=== PATIENT | male | born 1955 | race Caucasian/White ===

== ENCOUNTER → 2021-01-03 11:52 | Outpatient (CLI) | payer BC, SELFPAY ==
--- NOTE | 2021-01-03 11:54 | DI.RAD.S_ITS ---
PROCEDURE: XR CHEST 2V INDICATIONS: perez TECHNIQUE: 2 views of the chest were acquired. COMPARISON: None. FINDINGS: Surgical changes and devices: None. Lungs and pleura: Scattered subsegmental scarring and/or atelectasis. No acute consolidation. No pleural effusions or pneumothorax. Mediastinum: Mediastinal contours are normal. Heart size is normal. Bones and chest wall: No suspicious bony abnormalities. Soft tissues appear unremarkable. IMPRESSION: No acute disease. Dictated by: Sanket Briggs M.D. on 01/03/2021 at 12:13 Approved by: Sanket Briggs M.D. on 01/03/2021 at 12:14
== END ==
PROVIDERS: PCP Family Medicine; Referring Provider Family Medicine; Visit Provider Family Medicine
DX: R06.00 Dyspnea, unspecified (principal)
CPT/HCPCS: 71046

== ENCOUNTER → 2021-01-22 15:59 | Outpatient (CLI) | payer BC, SELFPAY ==
[2021-01-22 17:16] LABS: COVID19 -Nasal RAPID Negative (Negative)
== END ==
PROVIDERS: PCP Family Medicine; Referring Provider Internal Medicine; Visit Provider Internal Medicine
DX: Z20.822 Contact with and (suspected) exposure to COVID-19 (principal)
CPT/HCPCS: 87635; C9803

== ENCOUNTER → 2021-01-23 10:55 | Outpatient (CLI) | payer BC, SELFPAY ==
--- NOTE | 2021-01-31 08:37 | PM.PFT.1 ---
Pulmonary Function Test Referral & Results Date Patient Seen: 01/23/21 Requesting provider: Jacob Reyna Results: The spirometry demonstrates an FVC of 3.96 L which is 81% of predicted. The FEV1 was measured at 2.60 L which is 71% of predicted. The FEV1/FVC ratio was 66 which is 88% of predicted. Following the administration of bronchodilator there was a 34% improvement in FEF 25-75% Lung volumes show an SVC of 4.36 L which is 88% of predicted. The diffusing capacity was measured at 31.40 which is 89% of predicted. The maximum voluntary ventilation was normal Interpretation: This study demonstrates mild obstructive lung disease based on reduction FEV1 although FEV1/FVC ratio is relatively preserved there is improvement after bronchodilator as noted above especially in small airway flow and shape of flow volume loop does support the presence of obstructive lung disease There is minimal reduction in lung volumes suggesting minimal if any restrictive lung disease Diffusing capacity is probably normal
== END ==
PROVIDERS: PCP Family Medicine; Referring Provider Family Medicine; Visit Provider Family Medicine
DX: R06.00 Dyspnea, unspecified (principal); J98.8 Other specified respiratory disorders; Z86.2 Personal history of diseases of the blood and blood-forming organs and certain disorders involving the immune mechanism
CPT/HCPCS: 94060; 94726; 94729

== ENCOUNTER → 2021-02-06 09:30 | Outpatient (CLI) | payer BC, SELFPAY ==
[2021-02-06 10:23] LABS: Add Manual Diff / Slide Review NO; Basophils Absolute Auto 100 /uL (0-100); Eosinophils Absolute Auto 600 /uL (0-450); Eosinophils Percent Auto 9.8 % (2-4); Hematocrit 44.4 % (41-53); Hemoglobin 14.4 g/dL (13.5-17.5); Lymphocytes Absolute Auto 1800 /uL (1100-4500); Lymphocytes Percent Auto 29.2 % (25-40); Mean Corpuscular HGB Conc 32.4 % (30-36); Mean Corpuscular Hemoglobin 30.8 PG (26-34); Monocytes Absolute Auto 800 /uL (0-900); Monocytes Percent Auto 12.6 % (3-14); Neutrophils Absolute Auto 3000 /uL (1500-7000); Neutrophils Percent Auto 47.4 % (50-75); Platelet Count 210 X10^3/uL (150-400); Red Blood Cell Count 4.68 X10^6/uL (4.5-5.9); Red Cell Distribution Width 14.7 % (11.6-14.8); White Blood Cell Count 6.3 X10^3/uL (4.5-11.0)
[2021-02-06 11:06] LABS: Alanine Aminotransferase 29 IU/L (<50); Albumin 3.9 g/dL (3.5-5.0); Albumin Globulin Ratio 1.3 (1.0-2.8); Alkaline Phosphatase 83 U/L (38-126); Aspartate Aminotransferase 31 IU/L (17-59); BUN Creatinine Ratio 21.1 (6-22); Bilirubin Total 0.8 mg/dL (0.2-1.3); Blood Urea Nitrogen 15 mg/dL (9-20); Calcium 9.4 mg/dL (8.4-10.2); Carbon Dioxide 31 mmol/L (22-32); Chloride 103 mmol/L (98-107); Cholesterol 177 mg/dL (140-199); Estimated Glomerular Filt Rate > 60.0 mL/min (>60); Glucose 93 mg/dL (80-110); HDL Cholesterol 44 mg/dL (40-60); HEMOLYSIS < 15 (0-50); LDL Cholesterol Calculated 120 mg/dL (<100); Potassium 4.6 mmol/L (3.4-5.1); Sodium 137 mmol/L (137-145); Total Protein 6.9 g/dL (6.3-8.2); Triglycerides 65 mg/dL (35-150)
[2021-02-06 11:25] LABS: Free T3, Triiodothyronine Free 3.78 pg/mL (2.77-5.27)
[2021-02-06 11:26] LABS: Vitamin D 25 Hydroxy (D3) 40.9 ng/mL (30.0-100.0)
[2021-02-06 11:37] LABS: Prostate Specific Antigen Scrn 0.702 ng/mL (0.1-4.0)
[2021-02-06 11:39] LABS: Thyroid Stimulating Hormone 1.53 uIU/mL (0.47-4.68)
== END ==
PROVIDERS: PCP Family Medicine; Referring Provider Family Medicine; Visit Provider Family Medicine
DX: E55.9 Vitamin D deficiency, unspecified (principal); E78.2 Mixed hyperlipidemia; J45.909 Unspecified asthma, uncomplicated; R06.00 Dyspnea, unspecified; R63.5 Abnormal weight gain; Z12.5 Encounter for screening for malignant neoplasm of prostate
CPT/HCPCS: 36415; 80053; 80061; 82306; 84439; 84443; 84481; 85025; G0103

== ENCOUNTER → 2021-06-25 09:36 | Outpatient (CLI) | payer BC, OTHER, SELFPAY ==
--- NOTE | 2021-06-25 09:38 | DI.US.S_ITS ---
PROCEDURE: US EXTREMITY NONVASC LOWER LT INDICATIONS: possible smith's cyst TECHNIQUE: Real-time scanning was performed of the left popliteal fossa, with image documentation. COMPARISON: None. FINDINGS: Ultrasound examination of posterior left knee shows a complex fluid collection within left popliteal fossa measures 4.6 x 3.3 x 1.6 cm in size with low level internal echo. No internal vascularity is seen. Mild edema involving superior posterior left calf soft tissue is seen. IMPRESSION: 1. Slightly complex 4.6 x 3.3 x 1.6 cm left popliteal cyst as above. 2. Mild left calf edema. Dictated by: Javier Enrique M.D. on 06/25/2021 at 10:46 Approved by: Javier Enrique M.D. on 06/25/2021 at 10:46
== END ==
PROVIDERS: PCP Family Medicine; Referring Provider Family Medicine; Visit Provider Family Medicine
DX: M25.562 Pain in left knee (principal); M71.22 Synovial cyst of popliteal space [Baker], left knee; M25.462 Effusion, left knee; R60.0 Localized edema
CPT/HCPCS: 76882

== ENCOUNTER → 2022-10-23 10:55 | Outpatient (CLI) | payer BC, OTHER, SELFPAY ==
[2022-10-23 11:15] LABS: Add Manual Diff / Slide Review NO; Basophils Absolute Auto 0 /uL (0-100); Basophils Percent Auto 0.7 % (0-2); Eosinophils Absolute Auto 400 /uL (0-450); Eosinophils Percent Auto 6.3 % (2-4); Hematocrit 42.6 % (41-53); Hemoglobin 14.5 g/dL (13.5-17.5); Lymphocytes Absolute Auto 1600 /uL (1100-4500); Mean Corpuscular Hemoglobin 31.9 PG (26-34); Mean Corpuscular Volume 93.7 fL (80-100); Monocytes Absolute Auto 800 /uL (0-900); Monocytes Percent Auto 12.6 % (3-14); Neutrophils Absolute Auto 3200 /uL (1500-7000); Neutrophils Percent Auto 53.4 % (50-75); Platelet Count 185 X10^3/uL (150-400); Red Blood Cell Count 4.54 X10^6/uL (4.5-5.9); Red Cell Distribution Width 14.8 % (11.6-14.8)
[2022-10-23 11:33] LABS: Alanine Aminotransferase 28 IU/L (<50); Albumin Globulin Ratio 1.3 (1.0-2.8); Alkaline Phosphatase 83 U/L (38-126); Aspartate Aminotransferase 32 IU/L (17-59); BUN Creatinine Ratio 21.9 (6-22); Bilirubin Total 0.9 mg/dL (0.2-1.3); Blood Urea Nitrogen 16 mg/dL (9-20); Calcium 8.9 mg/dL (8.4-10.2); Carbon Dioxide 30 mmol/L (22-32); Chloride 102 mmol/L (98-107); Cholesterol 179 mg/dL (140-199); Estimated Glomerular Filt Rate > 60 mL/min (>60); Globulin 3.1 g/dL (1.7-4.1); Glucose 99 mg/dL (80-110); HDL Cholesterol 40 mg/dL (40-60); HEMOLYSIS < 15 (0-50); LDL Cholesterol Calculated 123 mg/dL (<100); Potassium 4.2 mmol/L (3.4-5.1); Sodium 137 mmol/L (137-145); Total Protein 7.1 g/dL (6.3-8.2); Triglycerides 82 mg/dL (35-150)
[2022-10-23 12:00] LABS: Prostate Specific Antigen 0.817 ng/mL (0.10-4.00)
== END ==
PROVIDERS: PCP Family Medicine; Referring Provider Family Medicine; Visit Provider Family Medicine
DX: Z00.00 Encounter for general adult medical examination without abnormal findings (principal); D72.10 Eosinophilia, unspecified; E78.2 Mixed hyperlipidemia; Z12.5 Encounter for screening for malignant neoplasm of prostate
CPT/HCPCS: 36415; 80053; 80061; 82306; 84153; 85025

== ENCOUNTER → 2023-01-14 15:48 | Outpatient (CLI) | payer BC, OTHER, SELFPAY ==
[2023-01-14 23:36] LABS: Free T4, Direct Thyroxine 1.21 ng/dL (0.78-2.19)
[2023-01-14 23:50] LABS: Thyroid Stimulating Hormone 1.97 uIU/mL (0.47-4.68)
== END ==
PROVIDERS: PCP Family Medicine; Referring Provider Dermatology; Visit Provider Dermatology
DX: L92.0 Granuloma annulare (principal)
CPT/HCPCS: 36415; 84439; 84443

== ENCOUNTER → 2023-03-26 15:26 | Outpatient (CLI) | payer BC, OTHER, SELFPAY ==
--- NOTE | 2023-03-26 15:29 | DI.RAD.S_ITS ---
PROCEDURE: XR LUMBAR SPINE 2-3V INDICATIONS: lower back/hip pain TECHNIQUE: 3 views of the lumbar spine were acquired. COMPARISON: None. FINDINGS: Bones: 5 [id number] vertebrae are present. Levo scoliotic curvature of the lumbar spine. Straightening of normal lumbar lordosis. Diffusely decreased osseous mineralization. Multilevel degenerative changes with disc height loss, degenerative endplate changes and marginal spurring. Facet arthropathy worse in the lower lumbar spine. No vertebral body compression fractures. No suspicious bony lesions. Soft tissues: Overlying bowel gas pattern is normal. No suspicious soft tissue calcifications. IMPRESSION: Multilevel degenerative changes of the lumbar spine. Dictated by: Fernandez Solorzano M.D. on 03/26/2023 at 16:45 Approved by: Fernandez Solorzano M.D. on 03/26/2023 at 16:46
--- NOTE | 2023-03-26 15:29 | DI.RAD.S_ITS ---
PROCEDURE: XR HIP W PEL IF DONE RT 2V INDICATIONS: lower back/hip pain TECHNIQUE: AP pelvis with lateral view(s) of the right hip(s). COMPARISON: None. FINDINGS: Bones: No fractures or dislocations. Status post right hip arthroplasty. The hardware appears intact without surrounding fracture or lucency. Degenerative changes of the visualized lower lumbar spine and pubic symphysis. Pelvic ring appears intact. No suspicious bony lesions. Soft tissues: The visualized bowel gas pattern is normal. No suspicious soft tissue calcifications. IMPRESSION: Right hip arthroplasty without evidence of interval complication. Dictated by: Fernandez Solorzano M.D. on 03/26/2023 at 16:46 Approved by: Fernandez Solorzano M.D. on 03/26/2023 at 16:47
== END ==
PROVIDERS: PCP Family Medicine; Referring Provider Family Medicine; Visit Provider Family Medicine
DX: M54.42 Lumbago with sciatica, left side (principal); M54.41 Lumbago with sciatica, right side; M47.816 Spondylosis without myelopathy or radiculopathy, lumbar region; M25.551 Pain in right hip; G89.29 Other chronic pain; Z96.641 Presence of right artificial hip joint; Z87.81 Personal history of (healed) traumatic fracture
CPT/HCPCS: 72100; 73502

== ENCOUNTER → 2023-03-28 10:52 | Outpatient (CLI) | payer BC, OTHER, SELFPAY ==
--- NOTE | 2023-03-28 10:53 | DI.MRI.S_ITS ---
PROCEDURE: MR LUMBAR SPINE WO CON INDICATIONS: Low back pain sciatica TECHNIQUE: Noncontrast sagittal T1 spin echo and T2 fast echo, sagittal STIR, and T2 fast spin echo through the lumbar spine. In cases with scoliosis, additional coronal T2 fast spin echo may be performed. COMPARISON: None. FINDINGS: Image quality: Excellent. Alignment and Curvature: There is normal bony alignment. Bone Marrow: Marrow is of normal overall signal. Schmorl's nodes of the thoracolumbar spine. No acute vertebral body compression fractures. Spinal Cord: Conus medullaris terminates at the L1 level. Visualized cord demonstrates normal signal and size. Paraspinous Soft Tissues: No paravertebral masses. T12-L1: No significant disc bulge. The foramina and central canal are patent. L1-L2: The disc is desiccated with a diffuse disc bulge and disc osteophytes. A right paracentral protrusion causes narrowing of the right lateral recess and exiting nerve root. Severe right and moderate left foraminal stenosis. The central canal has moderate stenosis. L2-L3: The disc is desiccated with a diffuse disc bulge and disc osteophytes. Facet hypertrophy on the right. Moderate right and mild left foraminal stenosis. The central canal has mild stenosis. L3-L4: Mild diffuse disc bulge. No foraminal or central canal stenosis. L4-L5: Disc space narrowing with a diffuse disc bulge and disc osteophytes. Modic type 1 endplate changes. Facet hypertrophy on the right. Mild bilateral foraminal stenosis. The central canal is patent. L5-S1: Disc space narrowing with a diffuse disc bulge and disc osteophytes. Facet hypertrophy bilaterally. Mild bilateral foraminal stenosis. The central canal is patent. IMPRESSION: 1. Multilevel lumbar spondylosis causing foraminal and central canal stenosis as detailed above. 2. The visualized spinal cord has a normal appearance. Dictated by: Matty Reynolds M.D. on 03/29/2023 at 14:10 Approved by: Matty Reynolds M.D. on 03/29/2023 at 14:20
--- NOTE | 2023-03-28 10:53 | DI.MRI.S_ITS ---
PROCEDURE: MR HIP RT WO CON INDICATIONS: Hip pain TECHNIQUE: Noncontrast coronal T1 spin echo and STIR through the bony pelvis. Coronal and axial T2 fast spin echo with fat saturation, sagittal T1 spin echo, and oblique axial T2 fast spin echo with fat saturation through the hip. COMPARISON: [facility], CR, XR HIP W PEL IF DONE RT 2V, 03/26/2023, 15:37. FINDINGS: Image quality: Degraded by metallic artifact. Bones and joints: There is a suboptimally visualized well-circumscribed high T2 intensity focus within the proximal right femur at the posterior aspect of the femoral shaft measuring 15 mm, containing small low T2 intensity foci, suggestive of an enchondroma versus low-grade chondrosarcoma. Right hip arthroplasty is present with adjacent metallic artifact. Mild periarticular osteophyte formation at the left hip joint. Moderate reactive signal within the endplates adjacent to the L5-S1 intervertebral disc. Bone marrow of the pelvic ring and proximal femurs show normal signal throughout. No intraosseous lesions or fractures. No avascular necrosis of the femoral heads. The visualized lower lumbar spine appears normally aligned. Tendons and ligaments: There is moderate grade tearing of the gluteus medius and minimus tendons at the femoral insertion sites. The nearby proximal iliotibial band also appears intact. The iliopsoas tendon appears intact, without adjacent bursal fluid collections or evidence for impingement syndrome. The origin of the hamstring tendon is intact at the ischial tuberosity, as well as the associated sacrotuberous ligament. Mild T2 signal elevation adjacent to the ischial origin of the right hamstring tendon. The straight and reflected heads of the rectus femoris muscle origin appear intact, as well as the conjoint tendon. The ligamentum teres appears intact where visualized. Labrum and cartilage: The acetabular labrum appears intact in the absence of intra-articular contrast. Cartilage surface of the femoral head appears of normal thickness. The alpha angle of the femur is within normal limits at less than 55 degrees. Soft tissues: There is a small amount of ill-defined fluid at the posterior aspect of the right proximal femur. Visualized muscles demonstrate normal bulk and internal signal. Quadratus femoris muscle demonstrates no internal edema to suggest ischiofemoral impingement. The proximal sciatic neurovascular bundle appears normal adjacent to the hamstring tendons. No free pelvic fluid. Bladder wall thickness is normal. Genitourinary structures and bowel loops appear normal where visualized. IMPRESSION: 1. Limited examination secondary to hip arthroplasty artifact. 2. Small amount of fluid posterior to the proximal femur. 3. Partial-thickness tearing of the right gluteus medius and minimus tendons. 4. Low-grade cartilaginous lesion within the proximal right femur. 4. Right hamstring tendinopathy. Dictated by: Marcelino Menendez M.D. on 03/29/2023 at 13:44 Approved by: Marcelino Menendez M.D. on 03/29/2023 at 13:51
== END ==
PROVIDERS: PCP Family Medicine; Referring Provider Family Medicine; Visit Provider Family Medicine
DX: M54.41 Lumbago with sciatica, right side (principal); M47.816 Spondylosis without myelopathy or radiculopathy, lumbar region; M47.817 Spondylosis without myelopathy or radiculopathy, lumbosacral region; M48.061 Spinal stenosis, lumbar region without neurogenic claudication; M48.07 Spinal stenosis, lumbosacral region; M54.42 Lumbago with sciatica, left side; S76.011A Strain of muscle, fascia and tendon of right hip, initial encounter; M25.551 Pain in right hip; M89.9 Disorder of bone, unspecified; G57.12 Meralgia paresthetica, left lower limb; G89.29 Other chronic pain; Z87.81 Personal history of (healed) traumatic fracture
CPT/HCPCS: 72148; 73721

== ENCOUNTER 2023-06-02 09:25 | Day surgery (SDC) | payer BC, OTHER, SELFPAY ==
[2023-05-26 14:53] VITALS: BMI 31.6
[2023-06-02] VITALS (7 sets, daily range): BP systolic 86–117; BP diastolic 57–78; PULSE 75–80; RESP 9–14; TEMP 36.2–36.9; O2SAT 93–98; BMI 31.7
[2023-06-02] MEDS: LACTATED RINGERS 1,000 ML 21 ML IV (10:05)
--- NOTE | 2023-06-02 10:13 | P.HP_ITS ---
History of Present Illness History of Present Illness Date Patient Seen: 06/02/23 Time Patient Seen: 10:13 [place] [facility] [place]: 67-year-old man here for a elective open left inguinal hernia repair. Please refer to the H and P from April 2023 for further detail. No interval change in health. [facility] Medical History Sarcoidosis Chronic bilateral low back pain with bilateral sciatica Chronic right hip pain History of fracture of right hip Chronic left-sided low back pain without sciatica Meralgia paresthetica, left lower limb Tinea corporis Trigger finger of right hand Upper extremity somatic dysfunction Degenerative arthritis of knee, bilateral Synovial cyst of popliteal space [De Paz], left knee Swelling of left knee joint Somatic dysfunction of lower extremity Pelvic somatic dysfunction Sacral region somatic dysfunction Segmental and somatic dysfunction of abdomen and other regions Lumbar region somatic dysfunction Left knee pain Low back pain Bilateral hand pain Eosinophilia, unspecified Segmental and somatic dysfunction of rib cage Rib pain on left side Unexplained weight gain Hyperlipidemia, mixed Vitamin D deficiency Allergies Abnormal chest xray (~1978) Gout (~1988) Mumps Herpes (~1977) Hepatitis C Retinal detachment (~2004) Hearing loss (~2009) Cataracts, bilateral Personal history of sarcoidosis (~1978) RINCON (dyspnea on exertion) Surgical History Anesthesia History of surgery History of hip replacement Family History Father History of heart disease Hyperlipidemia Hypertension Mother Cancer Diabetes mellitus Brother Diabetes mellitus History of heart disease Sister Stroke Atrial fibrillation Grandfather Cancer Grandmother History of heart disease Grandmother No problems noted. Social History marital status: household members: spouse lives independently: Yes occupational status: employed Smoking Status: Never smoker alcohol intake: current substance use type: does not use Meds Home Medications and Allergies Home Medications Medication Instructions Recorded Confirmed Type allopurinol 300 mg tablet 300 mg PO DAILY #90 tabs 12/29/22 06/02/23 Rx Allergies Allergy/AdvReac Type Severity Reaction Status Date / Time penicillin G Allergy Severe Hives Verified 04/30/23 09:10 Sulfa (Sulfonamide Allergy Severe Hives Verified 04/30/23 09:10 Antibiotics) Exam Narrative Exam Narrative: General adult man alert oriented no acute distress Chest nonlabored respiration Abdomen soft nontender nondistended. Left inguinal hernia marked with my initials. Assessment & Plan Assessment and plan (1) Left inguinal hernia: Status: Acute Assessment & Plan narrative: 67-year-old man here for a elective open left inguinal hernia repair. We reviewed the risks benefits and alternatives to surgery once again. He provides his written and verbal consent to proceed.
[2023-06-02] MEDS: CLINDAMYCIN 900 MG/50 ML PIGGYBACK 50 MG IV (10:37)
--- NOTE | 2023-06-02 10:55 | SUR.OPER ---
Supine on padded OR bed, head on pillow, arms secured on padded arm boards at <90 degrees abduction, legs uncrossed, safety belt at thigh, tape over blanket over lower legs. Pillow under knees.
[2023-06-02] MEDS: BUPIVACAINE 0.25% (PF) VIAL 30 ML INJ (10:59)
--- NOTE | 2023-06-02 11:51 | PM.OP.1 ---
Operative Date/Time/Diagnoses Date of procedure: 06/02/23 Time of procedure: 11:52 Pre-op diagnosis: Left inguinal hernia Post-op diagnosis: same Procedure & Clinicians Procedure: Open left inguinal hernia repair with mesh Same procedure as scheduled: Yes Indications: Symptomatic reducible left inguinal hernia Surgeon: Wei Calhoun Yes if Unassisted: Yes Anesthesia Type: General Operative Notes Findings: Large bowel containing Estimated Blood Loss (mL): 10 Procedure in detail: The patient was placed supine on the table and bilateral lower extremity compression devices were applied. Anesthesia was induced they were intubated with an LMA and received Ancef. A time-out was performed. They were prepped and draped in sterile fashion. The left external inguinal ring and the anterior superior iliac crest were identified and marked. 1 finger breath above the inguinal ligament the skin was infiltrated with 0.25% bupivacaine. The skin incision was made, the subcutaneous tissues were divided with electrocautery exposing the external oblique aponeurosis which was then opened along the direction of its fibers. Using blunt dissection the internal oblique aporneurosis was from the external oblique upper leaflet. The cord was carefully dissected away from the inguinal canal adjacent to the pubic tubercle. The cord including the vas deferens, testicular bloody supply, ilioguinal and genital nerve were encircled with a [place] drain. No direct floor defect was observed. The cremasteric fibers surrounding the cord were divided adjacent to the internal ring. The vas deferens and the testicular vessels were preserved and protected. The cord contents were carefully explored. There was a large, bowel containing indirect hernia on the anterior medial aspect of the cord which was skeletonized away from the vas deferens and testicular blood supply. The indirect hernia was skeletonized back to the internal ring and reduced spontaneously into the abdomen. A 7x 15 cm lightweight Bard Pro Loop hernia mesh was anchored to the insertion of the rectus muscle at the pubic tubercle such that there was approximately 2 cm of tubercle overlap with Ethibond. The inferior edge of the mesh was secured to the shelving edge of the inguinal ligament using Ethibond. Interrupted 3 0 Vicryl suture was used to anchor the superior aspect of the mesh to the conjoined tendon in several places. The tails were then reapproximated loosely around the spermatic cord. A plug of mesh was placed into the internal ring and secured to the adjacent fascia given fascial defect. The tails of the mesh were then tucked under the external oblique aponeurosis. The repair was checked for hemostasis. The wound was irrigated with sterile saline. The external oblique aponeurosis was reapproximated in a running fashion using 3 0 Vicryl. The subcutaneous tissues were reapproximated with 3 0 Vicryl skin closed with 4 0 Monocryl followed by the application of Dermabond. At the end of the operation I ensured that both testicles were within the scrotum. The sponge instrument count at the end operation was correct. The patient emerged from anesthesia was extubated and transferred to the postoperative care unit in stable condition. A total of 30 ml of of 0.25% bupivicaine was used to infiltrate the skin. Complications: none Post-operative Condition: stable Disposition: same day surgery
[2023-06-02] MEDS: ACETAMINOPHEN 325 MG TABLET 650 MG PO (12:12)
== END 2023-06-02 12:40 | disposition home or self-care (01) ==
PROVIDERS: PCP Family Medicine; Referring Provider Surgery; Visit Provider Surgery
PROC: (CPT 49505; principal; 2023-06-02 10:45)
DX: K40.90 Unilateral inguinal hernia, without obstruction or gangrene, not specified as recurrent (principal)
CPT/HCPCS: 49505; J1100; J1885; J2405; J2704; J3010

== ENCOUNTER 2023-06-07 12:29 | Emergency (ER) | payer BC, OTHER, SELFPAY ==
[2023-06-07] VITALS (18 sets, daily range): BP systolic 114–157; BP diastolic 64–110; PULSE 64–152; RESP 13–30; TEMP 37.1; O2SAT 93–97; BMI 32.1
--- NOTE | 2023-06-07 12:49 | DI.RAD.S_ITS ---
PROCEDURE: XR CHEST 1V INDICATIONS: A FIB WITH RVR TECHNIQUE: One view of the chest was acquired. COMPARISON: [facility], CR, XR CHEST 2V, 01/03/2021, 11:50. FINDINGS: Surgical changes and devices: None. Lungs and pleura: Lungs are clear. No pleural effusions or pneumothorax. Mediastinum: Mediastinal contours appear normal. Heart size is normal. Bones and chest wall: No suspicious bony lesions. Overlying soft tissues appear unremarkable. IMPRESSION: No acute cardiopulmonary abnormality is seen. Dictated by: Marcelino Menendez M.D. on 06/07/2023 at 13:56 Approved by: Marcelino Menendez M.D. on 06/07/2023 at 13:57
--- NOTE | 2023-06-07 12:50 | ED.ARRPALP ---
HPI - Arrhythmia/Palpitations General Chief Complaint: Arrhythmia/Palpitations Stated Complaint: IRREGULAR HEART RATE Time Seen by Provider: 06/07/23 12:34 History of Present Illness HPI narrative: 67-year-old male with history of gout, hernia surgery 06/02/23 presents by private vehicle from home for elevated heart rate. Patient states that last night he was sitting in his chair when he felt his heart began to flutter. He checked his pulse and it was 150 beats per minute, but it eventually went away. This morning his heart rate increased again and he went to the walk-in clinic, who referred him to the emergency department. Patient denies history of heart problems. He denies chest pain, shortness of breath, leg swelling, other complaints. Related Data Previous Rx's Medication Instructions Recorded allopurinol 300 mg tablet 300 mg PO DAILY #90 tabs 12/29/22 acetaminophen 325 mg capsule 650 mg (2 x 325 mg) PO QID PRN 06/02/23 (Tylenol) pain #60 caps docusate sodium 100 mg capsule 100 mg PO BID #30 caps 06/02/23 (Colace) ibuprofen 200 mg tablet 400 mg (2 x 200 mg) PO Q6H #60 tabs 06/02/23 tramadol 50 mg tablet 50 mg PO Q6H PRN pain #15 tabs 06/02/23 apixaban 5 mg tablet (Eliquis) 5 mg PO BID #30 tabs 06/07/23 diltiazem HCl 180 mg 180 mg PO QAM #30 caps 06/07/23 capsule,extended release 24 hr spironolactone 25 mg tablet 25 mg PO DAILY #30 tabs 06/07/23 cyclobenzaprine 10 mg tablet 10 mg PO TID PRN muscle spasm 3 06/09/23 days #10 tabs Allergies Allergy/AdvReac Type Severity Reaction Status Date / Time penicillin G Allergy Severe Hives Verified 06/07/23 12:53 Sulfa (Sulfonamide Allergy Severe Hives Verified 06/07/23 12:53 Antibiotics) Review of Systems Review of Systems Narrative: Negative except as noted above Patient History Medical History Sarcoidosis Chronic bilateral low back pain with bilateral sciatica Chronic right hip pain History of fracture of right hip Chronic left-sided low back pain without sciatica Meralgia paresthetica, left lower limb Tinea corporis Trigger finger of right hand Upper extremity somatic dysfunction Degenerative arthritis of knee, bilateral Synovial cyst of popliteal space [Ed Paz], left knee Swelling of left knee joint Somatic dysfunction of lower extremity Pelvic somatic dysfunction Sacral region somatic dysfunction Segmental and somatic dysfunction of abdomen and other regions Lumbar region somatic dysfunction Left knee pain Low back pain Bilateral hand pain Eosinophilia, unspecified Segmental and somatic dysfunction of rib cage Rib pain on left side Unexplained weight gain Hyperlipidemia, mixed Vitamin D deficiency Allergies Abnormal chest xray (~1978) Gout (~1988) Mumps Herpes (~1977) Hepatitis C Retinal detachment (~2004) Hearing loss (~2009) Cataracts, bilateral Personal history of sarcoidosis (~1978) RINCON (dyspnea on exertion) Surgical History Anesthesia History of surgery History of hip replacement Family History Father History of heart disease Hyperlipidemia Hypertension Mother Cancer Diabetes mellitus Brother Diabetes mellitus History of heart disease Sister Stroke Atrial fibrillation Grandfather Cancer Grandmother History of heart disease Grandmother No problems noted. Social History marital status: household members: spouse lives independently: Yes occupational status: employed Smoking Status: Never smoker alcohol intake: current substance use type: does not use Smoking Status: Never smoker alcohol intake frequency: 0-2 drinks per day Substance Use Type: does not use Exam Initial Vital Signs Initial Vital Signs: Vital Signs Temperature 98.7 F 06/07/23 12:46 Pulse Rate 152 H 06/07/23 12:46 Respiratory Rate 18 06/07/23 12:46 Blood Pressure 150/110 H 06/07/23 12:46 Pulse Oximetry 97 06/07/23 12:46 Oxygen Delivery Method Room Air 06/07/23 12:46 Const: Awake, alert, no acute distress, nontoxic appearing Cardiac: Irregularly irregular, tachycardia RESP: unlabored, clear bilaterally, no wheezing GI: Atraumatic, soft, nontender, nondistended, no rebound, no guarding MSK: Atraumatic, full range of motion, pulses equal Skin: Warm, Dry, intact, no rashes Neuro: AO x3, CN II-XII grossly intact, moves all extremities Psych: affect normal, mood normal, not suicidal, not homicidal Course Orders Ordered: Discontinued Medications Diltiazem HCl (Diltiazem 5 Mg/Ml Sdv) 20 mg IV NOW ONE Stop: 06/07/23 13:24 Last Admin: 06/07/23 13:28 Dose: 20 mg Documented By: EDI Diltiazem HCl (Diltiazem Cd 180 Mg Cap) 180 mg PO NOW ONE Stop: 06/07/23 14:01 Last Admin: 06/07/23 14:23 Dose: 180 mg Documented By: EDI Sodium Chloride (Normal Saline 0.9%) 1,000 mls @ 1,000 mls/hr IV BOLUS ONE Stop: 06/07/23 13:47 Last Infusion: 06/07/23 13:42 Dose: Infused Documented By: Admin: 06/07/23 12:56 Dose: 1,000 mls/hr Documented By: EDI Metoprolol Tartrate (Metoprolol Tartrate 5 Mg/5 Ml Inj) 5 mg IV Q5M ONEL Stop: 06/07/23 13:11 Last Admin: 06/07/23 13:13 Dose: 5 mg Documented By: Admin: 06/07/23 13:06 Dose: 5 mg Documented By: Admin: 06/07/23 12:56 Dose: 5 mg Documented By: EDI Vital Signs Vital signs: Vital Signs - 8 hr 06/07/23 12:46 06/07/23 13:12 06/07/23 13:26 Temperature 98.7 F Pulse Rate 152 H 133 H 142 H Respiratory Rate 18 13 Blood Pressure 150/110 H Pulse Oximetry 97 96 Oxygen Delivery Method Room Air 06/07/23 13:28 06/07/23 13:30 06/07/23 13:30 Temperature Pulse Rate 146 H 146 H Respiratory Rate 13 Blood Pressure 156/100 H 157/92 H Pulse Oximetry 97 Oxygen Delivery Method 06/07/23 13:40 06/07/23 14:00 06/07/23 14:00 Temperature Pulse Rate 76 75 Respiratory Rate 18 Blood Pressure 120/82 Pulse Oximetry 95 Oxygen Delivery Method 06/07/23 14:30 06/07/23 14:30 06/07/23 14:51 Temperature Pulse Rate 64 Respiratory Rate 14 Blood Pressure 117/68 124/65 Pulse Oximetry 93 Oxygen Delivery Method 06/07/23 14:51 06/07/23 15:00 06/07/23 15:00 Temperature Pulse Rate 71 78 Respiratory Rate 28 H 17 Blood Pressure 120/72 Pulse Oximetry 97 95 Oxygen Delivery Method 06/07/23 15:30 06/07/23 15:30 06/07/23 16:00 Temperature Pulse Rate 77 Respiratory Rate 13 Blood Pressure 114/64 118/67 Pulse Oximetry 96 Oxygen Delivery Method 06/07/23 16:00 06/07/23 16:30 06/07/23 16:30 Temperature Pulse Rate 83 79 Respiratory Rate 16 16 Blood Pressure 123/76 Pulse Oximetry 94 95 Oxygen Delivery Method 06/07/23 17:19 06/07/23 17:20 06/07/23 17:20 Temperature Pulse Rate 76 79 Respiratory Rate 13 13 Blood Pressure 124/82 Pulse Oximetry 95 96 Oxygen Delivery Method 06/07/23 17:30 06/07/23 18:00 06/07/23 18:48 Temperature Pulse Rate 78 77 82 Respiratory Rate 23 30 H 18 Blood Pressure 129/89 Pulse Oximetry 95 94 96 Oxygen Delivery Method Room Air MDM - Arrhythmia/Palpitations Differential Diagnosis Differential diagnosis: Likely palpitations, anxiety, artial fibrillation and artial flutter Lab Data 06/07/23 13:20 06/07/23 13:20 Labs: Lab Results 06/07/23 06/07/23 Range/Units 13:20 14:00 WBC 8.3 (4.5-11.0) X10^3/uL RBC 4.39 L (4.5-5.9) X10^6/uL Hgb 13.7 (13.5-17.5) g/dL Hct 41.1 (41-53) % MCV 93.6 (80-100) fL MCH 31.2 (26-34) PG MCHC 33.4 (30-36) % RDW 15.2 H (11.6-14.8) % Plt Count 234 (150-400) X10^3/uL Neut % (Auto) 65.9 (50-75) % Lymph % (Auto) 19.9 L (25-40) % [place] % (Auto) 9.5 (3-14) % Eos % (Auto) 4.2 H (2-4) % Baso % (Auto) 0.5 (0-2) % Neut # (Auto) 5500 (9511-1319) /uL Lymph # (Auto) 1700 (0604-5765) /uL [place] # (Auto) 800 (0-900) /uL Eos # (Auto) 400 (0-450) /uL Baso # (Auto) 0 (0-100) /uL PT 13.8 H (9.4-12.5) SECONDS INR 1.2 (0.9-1.3) Sodium 137 (137-145) mmol/L Potassium 4.4 (3.4-5.1) mmol/L Chloride 102 (98-107) mmol/L Carbon Dioxide 28 (22-32) mmol/L BUN 16 (9-20) mg/dL Creatinine 0.77 (0.66-1.25) mg/dL Estimated GFR > 60 (>60) mL/min BUN/Creatinine Ratio 20.8 (6-22) Glucose 94 (80-110) mg/dL Calcium 8.8 (8.4-10.2) mg/dL Total Bilirubin 0.7 (0.2-1.3) mg/dL AST 32 (17-59) IU/L ALT 30 (<50) IU/L Alkaline Phosphatase 85 (38-126) U/L Total Creatine Kinase 46 L (55-170) U/L Troponin I 0.041 H (0.01-0.034) ng/mL NT-Pro-B Natriuret Pep 4060 H (<125) pg/mL Total Protein 6.8 (6.3-8.2) g/dL Albumin 3.7 (3.5-5.0) g/dL Globulin 3.1 (1.7-4.1) g/dL Albumin/Globulin Ratio 1.2 (1.0-2.8) TSH 1.40 (0.47-4.68) uIU/mL Urine Color Yellow Urine Appearance Clear Urine pH 7.0 (4.5-8.0) Ur Specific [place] 1.015 (1.000-1.035) Urine Protein Negative (Negative) Urine Glucose (UA) Negative (Negative) g/dL Urine Ketones Trace H (NEGATIVE) Urine Occult Blood Negative (Negative) Urine Nitrate Negative (Negative) Urine Bilirubin Negative (NEGATIVE) Urine Urobilinogen 0.2 (0.2) E.U./dL Ur Leukocyte Esterase Negative (NEGATIVE) Urine RBC None seen (0-5/HPF) Urine WBC None seen (0-5/HPF) Ur Squamous Epith Cells None seen (0-5/HPF) Urine Bacteria None seen (None) Ur Culture Indicated? Cult not indicated Vol Urine Centrifuged 10ml (spun) ECG Data Interpretation: Tachycardia the patient thinks began yesterday, however he isn't quite sure if he has ever had abnormal heart rhythm in the past. He states he has not measured his vitals at home. Patient found to be in atrial fibrillation with RVR on arrival. Initially attempted to cardiovert with 5 mg IV metoprolol x3, however this did not successfully cardiovert him. Patient converted to atrial fibrillation at 60-70 beats per minute with single dose of IV Cardizem. P.o. long-acting Cardizem ordered and provided to the patient. Chads 2 Vasc score 1. Laboratory work is significant for borderline troponin, slightly elevated BNP. EKG is atrial fibrillation without concerning ischemic findings, patient adamantly denies chest pain. Echocardiogram shows dilated right ventricle and slightly increased atrial pressures. CT angiography did not show any pulmonary embolism despite recent hernia repair surgery, some findings of volume overload are seen in the lower lung cuadra, however patient is saturating 97-98% on room air and has no shortness of breath and does not appear to be clinically volume overloaded. Patient has remained rate controlled while in the emergency department after receiving Cardizem. I discussed all findings with Dr. Holloway of Cardiology, who recommended continuing diltiazem, starting low-dose spironolactone, and even though the patient's CHADS2 Vasc score is 1 he would recommend that the patient be empirically anticoagulated with Eliquis. All of these medications were sent to the patient's pharmacy of choice. Discharge Plan Departure Patient Disposition: Home Clinical Impression: Atrial fibrillation with RVR Instructions: DI for Atrial Fibrillation Activity Restrictions/Additional Instructions: If your heart rate elevates over 120 beats per minute I recommend taking 1 single extra dose of your diltiazem. If after approximately 1 hour it does not control her heart rate please return to the emergency department for further evaluation and treatment. Prescriptions: New diltiazem HCl 180 mg capsule,extended release 24hr 180 mg PO QAM Qty: 30 0RF spironolactone 25 mg tablet 25 mg PO DAILY Qty: 30 0RF Eliquis 5 mg tablet 5 mg PO BID Qty: 30 0RF No Action allopurinol 300 mg tablet 300 mg PO DAILY Qty: 90 3RF cyclobenzaprine 10 mg tablet 10 mg PO TID PRN (Reason: muscle spasm) 3 Days Qty: 10 0RF tramadol 50 mg tablet 50 mg PO Q6H PRN (Reason: pain) Qty: 15 0RF ibuprofen 200 mg tablet 400 mg PO Q6H Qty: 60 0RF docusate sodium [Colace] 100 mg capsule 100 mg PO BID Qty: 30 0RF acetaminophen [Tylenol] 325 mg capsule 650 mg PO QID PRN (Reason: pain) Qty: 60 0RF Referrals: Reji Holloway MD [Physician] - Dong Reyna DO [Primary Care Provider] - Stand Alone Forms: Patient Portal/API
[2023-06-07] MEDS: SODIUM CHLORIDE 0.9% 1,000 ML 1000 ML IV (12:56)
[2023-06-07] MEDS: METOPROLOL TARTRATE 5 MG/5 ML INJ IV ×3 (12:56→13:13)
[2023-06-07] MEDS: dilTIAZem 5 MG/ML SDV 20 MG IV (13:28)
[2023-06-07 13:31] LABS: Add Manual Diff / Slide Review NO; Basophils Absolute Auto 0 /uL (0-100); Basophils Percent Auto 0.5 % (0-2); Eosinophils Absolute Auto 400 /uL (0-450); Eosinophils Percent Auto 4.2 % (2-4); Hematocrit 41.1 % (41-53); Hemoglobin 13.7 g/dL (13.5-17.5); Lymphocytes Absolute Auto 1700 /uL (1100-4500); Lymphocytes Percent Auto 19.9 % (25-40); Mean Corpuscular HGB Conc 33.4 % (30-36); Mean Corpuscular Hemoglobin 31.2 PG (26-34); Mean Corpuscular Volume 93.6 fL (80-100); Monocytes Absolute Auto 800 /uL (0-900); Monocytes Percent Auto 9.5 % (3-14); Neutrophils Absolute Auto 5500 /uL (1500-7000); Neutrophils Percent Auto 65.9 % (50-75); Platelet Count 234 X10^3/uL (150-400); Red Blood Cell Count 4.39 X10^6/uL (4.5-5.9); Red Cell Distribution Width 15.2 % (11.6-14.8); White Blood Cell Count 8.3 X10^3/uL (4.5-11.0)
[2023-06-07 13:47] LABS: INR 1.2 (0.9-1.3); Prothrombin Time 13.8 SECONDS (9.4-12.5)
[2023-06-07 13:55] LABS: Alanine Aminotransferase 30 IU/L (<50); Albumin 3.7 g/dL (3.5-5.0); Albumin Globulin Ratio 1.2 (1.0-2.8); Alkaline Phosphatase 85 U/L (38-126); Aspartate Aminotransferase 32 IU/L (17-59); BUN Creatinine Ratio 20.8 (6-22); Bilirubin Total 0.7 mg/dL (0.2-1.3); Blood Urea Nitrogen 16 mg/dL (9-20); Calcium 8.8 mg/dL (8.4-10.2); Carbon Dioxide 28 mmol/L (22-32); Chloride 102 mmol/L (98-107); Creatine Kinase 46 U/L (55-170); Estimated Glomerular Filt Rate > 60 mL/min (>60); Globulin 3.1 g/dL (1.7-4.1); Glucose 94 mg/dL (80-110); HEMOLYSIS < 15 (0-50); Potassium 4.4 mmol/L (3.4-5.1); Sodium 137 mmol/L (137-145); Total Protein 6.8 g/dL (6.3-8.2)
[2023-06-07 14:08] LABS: NT-proBNP (BNP-Adult 18+) 4060 pg/mL (<125); Troponin I 0.041 ng/mL (0.01-0.034)
[2023-06-07 14:08] LABS: Urine Volume 10mL (spun)
[2023-06-07 14:14] LABS: Appearance Urine UA CLEAR; Bilirubin Urine UA NEGATIVE (NEGATIVE); Color Urine UA YELLOW; Glucose Urine UA NEGATIVE (Negative); Ketones Urine UA TRACE (NEGATIVE); Leukocyte Esterase Urine UA NEGATIVE (NEGATIVE); Nitrite Urine UA NEGATIVE (Negative); Occult Blood Urine UA NEGATIVE (Negative); Protein Urine UA NEGATIVE (Negative); Specific Gravity Urine UA 1.015 (1.000-1.035); Urobilinogen Urine UA 0.2 E.U./dL (0.2)
--- NOTE | 2023-06-07 14:15 | DI.ECHO.S_ITS ---
[facility]---------+ [facility] +---------+ : : [address] : : : : [id number] : : : : Phone: [phone]+ Echocardiogram Report + + :Name: KISHAN LUNDY Study Date: 06/07/2023 Height: 72 in : :[facility] ReadingLocation: Weight: 237 lb : : Gender: Male BSA: 2.3 m2 : :: 1955 Age: 67 yrs BP: 120/72 mmHg: :Reason For Study: NEW ATRIAL FIBRILLATION, ELEVATED TROPONIN, : :ELEVATED BNP : :Ordering Physician: KRIS, : :REINA Performed By: Lesly Cooley : :Referring: REINA PONCE : + + Interpretation Summary 1) Normal left ventricular thickness and size with low normal systolic function (EF 50-55%). 2) Mildly enlarged right ventricle with low normal function. 3) There is mild mitral regurgitation. 4) No prior Echo available for comparison. Procedure: A two-dimensional transthoracic echocardiogram with color flow and Doppler was performed. The study quality was technically adequate. There is no prior echocardiogram noted for this patient. The patient was in atrial fibrillation with heart rates between 76-82 bpm during the exam. Left Ventricle: The left ventricle is normal in size and wall thickness. The ejection fraction is estimated to be 50-55%. There are no focal wall motion abnormalities. Diastolic function could not be accurately assessed due to atrial fibrillation. Right Ventricle: The right ventricle is mildly dilated. Right ventricular systolic function is at the lower limits of normal. Atria: The left atrial size is normal. Right atrial size is normal. There is no Doppler evidence for an interatrial shunt. Mitral Valve: The mitral valve is normal in structure and function. There is mild mitral regurgitation. Aortic Valve: The aortic valve is trileaflet. The aortic valve opens well. There is no aortic valve stenosis. No aortic regurgitation is present. Tricuspid Valve: The tricuspid valve is normal in structure and function. Pulmonary artery pressures cannot be estimated because of the lack of a measurable TR jet velocity. Pulmonary artery pressures cannot be estimated because of the lack of a measurable TR jet velocity but the IVC suggests a CVP of around 8 mmHg. Pulmonic Valve: The pulmonic valve leaflets are thin and pliable; valve motion is normal. There is mild pulmonic regurgitation. Great Vessels: The aortic root is normal size. The dimensions of the ascending aorta are normal. The IVC is dilated (diameter is greater than 2.1 cm) yet it collapses greater than 50% with a sniff. This suggests a right atrial pressure of 8 mm Hg. Pericardium/ Pleura There is no pericardial effusion. There is no pleural effusion. MMode/2D Measurements & Calculations LVIDd: 4.9 cm LVOT diam: 2.2 cm LVIDs: 3.5 cm Ao root diam: 3.7 cm FS: 27.8 % asc Aorta Diam: 3.3 cm IVSd: 0.92 cm Ao Arch Diam (Prox Trans): 3.1 cm LVPWd: 0.71 cm LV weathers. diameter/BSA (cm/m^2): 2.1 LV sys. diameter/BSA (cm/m^2): 1.5 LA A2 area: 21.8 cm2 RA long axis: 6.3 cm LA A4 area: 23.7 cm2 RA area: 20.9 cm2 LA length (vol): 6.7 cm RA vol: 59.3 ml LA vol: 65.5 ml RA : 25.9 ml/m2 LA vol index: 28.6 ml/m2 IVC diam: 2.2 cm RVD1 (basal): 4.8 cm RVD2 (mid): 3.7 cm TAPSE: 1.9 cm Doppler Measurements & Calculations Ao V2 max: 129.2 cm/sec LVOT Max [place]: 137.5 cm/sec Ao V2 mean: 97.9 cm/sec LV V1 max P.6 mmHg Ao max P.7 mmHg LV V1 VTI: 26.6 cm Ao mean P.2 mmHg SONAM(I,D): 3.8 cm2 Ao V2 VTI: 25.3 cm SONAM(V,D): 3.9 cm2 sev ratio: 1.0 SONAM indexed to BSA (cm^2/m^2): 1.7 MV E max [place]: 108.5 cm/sec PA V2 max: 71.8 cm/sec MV A max [place]: 1.1 cm/sec PA V2 mean: 52.5 cm/sec MV E/A: 99.9 PA mean P.2 mmHg Med Peak E' [place]: 7.9 cm/sec PA pr(Accel): 27.6 mmHg E/E' med: 13.7 Lat Peak E' [place]: 12.1 cm/sec E/E' lat: 9.0 E/e' average: 11.3 MV dec time: 0.16 sec SV(LVOT): 97.5 ml Reading Physician:04:34 PM
[2023-06-07] MEDS: dilTIAZem CD 180 MG CAP PO (14:23)
[2023-06-07 14:24] LABS: Bacteria Urine None Seen; Culture Indicated Urine Cult Not Indicated; RBC Urine None Seen (0-5/HPF); Squamous Epithelial Cell Urine None Seen (0-5/HPF); WBC Urine None Seen (0-5/HPF)
--- NOTE | 2023-06-07 16:45 | DI.CT.S_ITS ---
PROCEDURE: CT ANGIO CHEST PE PROTOCOL INDICATIONS: NEW A FIB/DILATED R VENTRICLE TECHNIQUE: After the administration of intravenous contrast, 2 mm thick sections acquired from the pulmonary apices to the posterior costophrenic angles. 3-dimensional maximum intensity projection (MIP) coronal and sagittal reformats were then acquired through the thorax. For radiation dose reduction, the following was used: automated exposure control, adjustment of mA and/or kV according to patient size. COMPARISON: None. FINDINGS: Image quality: Diagnostic. Pulmonary arteries: Pulmonary arteries are normal in size, and demonstrate no intraluminal filling defects to suggest central pulmonary embolism. Lower Neck: No enlarged lymph nodes. Thyroid: Normal CT appearance. Axillae: No enlarged lymph nodes. Chest Wall: Unremarkable. Bones: There are severe degenerative disc and endplate changes in the visible lower cervical spine. No suspicious bone lesions. Lungs and Pleura: Mild bibasilar reticulation and slight ground-glass opacity. Mild gravitational changes along the fissures and posterior pleural surfaces. No dense consolidations or pleural effusions. No suspicious nodules or masses. Bilateral perihilar bronchial wall thickening. No bronchiectasis. Heart: The heart is mildly enlarged. No pericardial effusion. Thoracic Vessels: No aortic aneurysm. Mediastinum and [place]: Mild confluent bilateral hilar adenopathy. No bulky mediastinal lymph nodes. Esophagus: No wall thickening. No hiatal hernia. Upper Abdomen: Visualized upper abdomen solid organs and bowel loops appear normal. IMPRESSION: No pulmonary embolus. Reticulation and scattered ground-glass opacities suggesting interstitial and early pulmonary edema. This may be due to cardiogenic edema or increased fluid status. Mild bilateral hilar adenopathy can be seen in the setting of CHF. This is otherwise nonspecific. Dictated by: Bridget Abarca M.D. on 06/07/2023 at 17:21 Approved by: Bridget Abarca M.D. on 06/07/2023 at 17:27
== END 2023-06-07 18:50 | disposition home or self-care (01) ==
PROVIDERS: Emergency Provider Emergency Medicine; PCP Family Medicine
DX: I48.91 Unspecified atrial fibrillation (principal); Z79.01 Long term (current) use of anticoagulants
CPT/HCPCS: 36415; 51798; 71045; 71275; 80053; 81001; 82550; 83880; 84443; 84484; 85025; 85610; 93005; 93306; 96361; 96374; 96375; 99284; Q9967

== ENCOUNTER 2023-06-09 12:15 | Emergency (ER) | payer BC, OTHER, SELFPAY ==
[2023-06-09 12:30] VITALS: BP 144/75; PULSE 69; RESP 18; TEMP 36.7; O2SAT 98; BMI 31.4
[2023-06-09 12:40] VITALS: BP 134/73; PULSE 67; RESP 18; O2SAT 95
--- NOTE | 2023-06-09 12:52 | ED_ITS ---
HPI - General Adult <Yaneth Wilson PA-C - Last Filed: 06/09/23 15:48> General Chief complaint: Hypertension Stated complaint: high BP 191/?, 240/117, 121/105@11:21,172/88@11:41 Time Seen by Provider: 06/09/23 12:30 Source: patient Mode of arrival: Ambulatory History of Present Illness HPI narrative: 67-year-old male with past medical history asthma, sciatica, arthritis, hyperlipidemia presents to the ED due to elevated blood pressure readings at home. Patient also complains of a right-sided neck pain which radiates up to the right temporal. Patient was diagnosed 2 days ago with AFib with RVR and started on diltiazem, spironolactone, Eliquis. Patient is about to start his Eliquis today, however has been taking the diltiazem and spironolactone. Patient has a home blood pressure cuff which goes on the wrist, has seen very elevated readings this morning as high as 240/117. Given the neck and headache and the elevated blood pressure readings, patient presents to the ED for further evaluation. Patient denies fever, chills, chest pain, shortness of breath, nausea, vomiting, vision changes, dysuria, lightheadedness, dizziness, syncope. Related Data Previous Rx's Medication Instructions Recorded allopurinol 300 mg tablet 300 mg PO DAILY #90 tabs 12/29/22 acetaminophen 325 mg capsule 650 mg (2 x 325 mg) PO QID PRN 06/02/23 (Tylenol) pain #60 caps docusate sodium 100 mg capsule 100 mg PO BID #30 caps 06/02/23 (Colace) ibuprofen 200 mg tablet 400 mg (2 x 200 mg) PO Q6H #60 tabs 06/02/23 tramadol 50 mg tablet 50 mg PO Q6H PRN pain #15 tabs 06/02/23 apixaban 5 mg tablet (Eliquis) 5 mg PO BID #30 tabs 06/07/23 diltiazem HCl 180 mg 180 mg PO QAM #30 caps 06/07/23 capsule,extended release 24 hr spironolactone 25 mg tablet 25 mg PO DAILY #30 tabs 06/07/23 cyclobenzaprine 10 mg tablet 10 mg PO TID PRN muscle spasm 3 01/24/24 days #10 tabs Allergies Allergy/AdvReac Type Severity Reaction Status Date / Time penicillin G Allergy Severe Hives Verified 06/07/23 12:53 Sulfa (Sulfonamide Allergy Severe Hives Verified 06/07/23 12:53 Antibiotics) Review of Systems <Yaneth Wilson PA-C - Last Filed: 06/09/23 15:48> Review of Systems Narrative: High blood pressure readings at home Constitutional Constitutional: Denies chills, Denies fatigue, Denies fever(s), Denies frequent falls, Denies lethargy and Denies weakness Eyes Eyes: Denies change in vision, Denies eye discharge, Denies irritation and Denies loss of vision ENT Ears, Nose, Mouth, and Throat: Denies change in voice, Denies dizziness, Denies neck pain, Denies sore throat and Denies throat swelling Cardiovascular Cardiovascular: Denies chest pain, Denies irregular heart rhythm, Denies lightheadedness, Denies palpitations, Denies dyspnea, Denies dyspnea on exertion and Denies orthopnea Respiratory Respiratory: Denies cough, Denies dyspnea, Denies dyspnea on exertion and Denies wheezing Gastrointestinal Gastrointestinal: Denies abdominal pain, Denies change in bowel habits, Denies diarrhea, Denies nausea and Denies vomiting Musculoskeletal Musculoskeletal: Denies neck pain and Denies numbness Comments: Right-sided neck pain, headache Integumentary/Breasts Skin/Breast: Denies pruritus, Denies erythema, Denies rash and Denies wounds Neurologic Neurologic: Denies behavioral changes, Denies confusion, Denies dizziness, Denies frequent falls, Denies loss of vision, Denies numbness and Denies weakness Psychiatric Psychiatric: Denies anxiety, Denies behavioral changes, Denies confusion, Denies depression, Denies homicidal ideation and Denies suicidal ideation Endocrine Endocrine: Denies fatigue, Denies flushing and Denies palpitations Hematologic/Lymphatic Hematologic/Lymphatic: Denies easy bruising Allergic/Immunologic Allergic/Immunologic: Denies urticaria, Denies throat swelling and Denies wheezing Patient History <Yaneth Wilson PA-C - Last Filed: 06/09/23 15:48> Medical History Sarcoidosis Chronic bilateral low back pain with bilateral sciatica Chronic right hip pain History of fracture of right hip Chronic left-sided low back pain without sciatica Meralgia paresthetica, left lower limb Tinea corporis Trigger finger of right hand Upper extremity somatic dysfunction Degenerative arthritis of knee, bilateral Synovial cyst of popliteal space [De Paz], left knee Swelling of left knee joint Somatic dysfunction of lower extremity Pelvic somatic dysfunction Sacral region somatic dysfunction Segmental and somatic dysfunction of abdomen and other regions Lumbar region somatic dysfunction Left knee pain Low back pain Bilateral hand pain Eosinophilia, unspecified Segmental and somatic dysfunction of rib cage Rib pain on left side Unexplained weight gain Hyperlipidemia, mixed Vitamin D deficiency Allergies Abnormal chest xray (~1978) Gout (~1988) Mumps Herpes (~1977) Hepatitis C Retinal detachment (~2004) Hearing loss (~2009) Cataracts, bilateral Personal history of sarcoidosis (~1978) RINCON (dyspnea on exertion) Surgical History Anesthesia History of surgery History of hip replacement Family History Father History of heart disease Hyperlipidemia Hypertension Mother Cancer Diabetes mellitus Brother Diabetes mellitus History of heart disease Sister Stroke Atrial fibrillation Grandfather Cancer Grandmother History of heart disease Grandmother No problems noted. Social History marital status: household members: spouse lives independently: Yes occupational status: employed Smoking Status: Never smoker alcohol intake: current substance use type: does not use Smoking Status: Never smoker alcohol intake frequency: 0-2 drinks per day Substance Use Type: does not use Exam <Yaneth Wilson PA-C - Last Filed: 06/09/23 15:48> Narrative Exam Narrative: Const General:?cooperative, healthy appearing and comfortable [facility] Head:?normal to inspection Ears:?hearing grossly normal bilaterally Nose:?external nose normal Face and sinus:?normal facial exam and sinuses nontender Mouth:?oral mucosae normal Throat:?posterior oropharynx normal Eyes General:?appearance normal, both eyes and all related structures Neck Neck:?normal visual inspection and no lymphadenopathy noted Resp Effort & Inspection:?normal respiratory effort Auscultation:?clear to auscultation bilaterally Cardio Rate:?regular rate Rhythm:?regular rhythm Musculoskeletal No midline tenderness to palpation. There is some tenderness to palpation of neck muscles. There is full range of motion of the neck. Strength and s ensation is intact. Neuro General:?patient alert, patient awake and patient oriented x3 Initial Vital Signs Initial Vital Signs: Vital Signs Temperature 98.1 F 06/09/23 12:30 Pulse Rate 69 06/09/23 12:30 Respiratory Rate 18 06/09/23 12:30 Blood Pressure 144/75 H 06/09/23 12:30 Pulse Oximetry 98 06/09/23 12:30 Oxygen Delivery Method Room Air 06/09/23 12:30 <Ninfa Perez MD - Last Filed: 06/10/23 19:24> Initial Vital Signs Initial Vital Signs: Vital Signs Temperature 98.1 F 06/09/23 12:30 Pulse Rate 69 06/09/23 12:30 Respiratory Rate 18 06/09/23 12:30 Blood Pressure 144/75 H 06/09/23 12:30 Pulse Oximetry 98 06/09/23 12:30 Oxygen Delivery Method Room Air 06/09/23 12:30 Course <Yaneth Wilson PA-C - Last Filed: 06/09/23 15:48> Vital Signs Vital signs: Vital Signs - 8 hr 06/09/23 12:30 06/09/23 12:40 Temperature 98.1 F Pulse Rate 69 67 Respiratory Rate 18 18 Blood Pressure 144/75 H 134/73 Pulse Oximetry 98 95 Oxygen Delivery Method Room Air Room Air <Ninfa Perez MD - Last Filed: 06/10/23 19:24> Vital Signs Vital signs: Vital Signs - 8 hr 06/09/23 12:30 06/09/23 12:40 Temperature 98.1 F Pulse Rate 69 67 Respiratory Rate 18 18 Blood Pressure 144/75 H 134/73 Pulse Oximetry 98 95 Oxygen Delivery Method Room Air Room Air Medical Decision Making <Yaneth Wilson PA-C - Last Filed: 06/09/23 15:48> MDM Narrative Medical decision making narrative: 67-year-old male with past medical history asthma, sciatica, arthritis, hyperlipidemia presents to the ED due to elevated blood pressure readings at home. Blood pressure readings in the ED today were 144/75, followed by 134/73. Patient's neck pain most consistent with a musculoskeletal etiology. Counseled patient and advised that he get a different blood pressure cuff. Counseled patient on the musculoskeletal neck pain. Prescribed muscle relaxants. Recommend taking Tylenol if the neck pain persists. Recommend continuing diltiazem, spironolactone, Eliquis as prescribed. Recommend follow-up with PCP and Cardiology. ED return precautions discussed with patient. Patient verbalized understanding. Medical records reviewed: Yes Discharge Plan Departure Patient Disposition: Home Clinical Impression: Neck pain, Elevated blood pressure reading Instructions: DI for Neck Pain Activity Restrictions/Additional Instructions: You were evaluated in the ED today for right-sided neck pain, headache and some elevated home blood pressure readings. Your blood pressure was normal in the ED and measured at 134/73. Your home blood pressure cuff is likely giving you some incorrect readings and we recommend that you obtain a different cough, preferably the appropriate size and 1 that goes on the arm versus the wrist. Your neck pain and headache is due to a musculoskeletal strain for which you are being prescribed a muscle relaxant. Please follow-up with your PCP. Return to the ED if you have worsening symptoms, chest pain, shortness of breath. Prescriptions: New cyclobenzaprine 10 mg tablet 10 mg PO TID PRN (Reason: muscle spasm) 3 Days Qty: 10 0RF No Action allopurinol 300 mg tablet 300 mg PO DAILY Qty: 90 3RF tramadol 50 mg tablet 50 mg PO Q6H PRN (Reason: pain) Qty: 15 0RF ibuprofen 200 mg tablet 400 mg PO Q6H Qty: 60 0RF docusate sodium [Colace] 100 mg capsule 100 mg PO BID Qty: 30 0RF acetaminophen [Tylenol] 325 mg capsule 650 mg PO QID PRN (Reason: pain) Qty: 60 0RF diltiazem HCl 180 mg capsule,extended release 24hr 180 mg PO QAM Qty: 30 0RF spironolactone 25 mg tablet 25 mg PO DAILY Qty: 30 0RF Eliquis 5 mg tablet 5 mg PO BID Qty: 30 0RF Referrals: Dong Reyna DO [Primary Care Provider] - Stand Alone Forms: Patient Portal/API ED Sign-out <Ninfa Perez MD - Last Filed: 06/10/23 19:24> Cosign ED Attending Everardoature Attestation: I did not see this patient. I was available all times for consultation.
== END 2023-06-09 13:25 | disposition home or self-care (01) ==
PROVIDERS: Emergency Provider Student in an Organized Health Care Education/Training Program; PCP Family Medicine
DX: M54.2 Cervicalgia (principal); R03.0 Elevated blood-pressure reading, without diagnosis of hypertension
CPT/HCPCS: 99281

== ENCOUNTER 2023-06-13 12:38 | Observation (INO) | payer BC, OTHER, MEDICARE, SELFPAY ==
[2023-06-13] VITALS (46 sets, daily range): BP systolic 104–137; BP diastolic 62–84; PULSE 58–160; RESP 9–99; TEMP 36.7–36.9; O2SAT 92–97; BMI 31.4
--- NOTE | 2023-06-13 13:02 | DI.RAD.S_ITS ---
PROCEDURE: XR CHEST 1V INDICATIONS: chest pain TECHNIQUE: One view of the chest was acquired. COMPARISON: [facility], CR, XR CHEST 1V, 06/07/2023, 13:05. [facility], CT, CT ANGIO CHEST PE PROTOCOL, 06/07/2023, 16:52. FINDINGS: Surgical changes and devices: None. Lungs and pleura: Lungs are clear. No pleural effusions or pneumothorax. Mediastinum: Mediastinal contours appear normal. Heart size is normal. Bones and chest wall: No suspicious bony lesions. Age-appropriate bony degenerative changes are seen. Overlying soft tissues appear unremarkable. IMPRESSION: Portable chest within normal limits for age. Dictated by: Jabier Calderon M.D. on 06/13/2023 at 13:12 Approved by: Jabier Calderon M.D. on 06/13/2023 at 13:12
[2023-06-13 13:25] LABS: Add Manual Diff / Slide Review NO; Basophils Absolute Auto 100 /uL (0-100); Basophils Percent Auto 0.7 % (0-2); Eosinophils Absolute Auto 600 /uL (0-450); Eosinophils Percent Auto 5.7 % (2-4); Hematocrit 45.6 % (41-53); Hemoglobin 15.5 g/dL (13.5-17.5); Lymphocytes Absolute Auto 2000 /uL (1100-4500); Lymphocytes Percent Auto 19.5 % (25-40); Mean Corpuscular HGB Conc 33.9 % (30-36); Mean Corpuscular Hemoglobin 31.7 PG (26-34); Mean Corpuscular Volume 93.5 fL (80-100); Monocytes Absolute Auto 1200 /uL (0-900); Monocytes Percent Auto 11.4 % (3-14); Neutrophils Absolute Auto 6400 /uL (1500-7000); Neutrophils Percent Auto 62.7 % (50-75); Platelet Count 259 X10^3/uL (150-400); Red Blood Cell Count 4.88 X10^6/uL (4.5-5.9); Red Cell Distribution Width 14.9 % (11.6-14.8); White Blood Cell Count 10.1 X10^3/uL (4.5-11.0)
--- NOTE | 2023-06-13 13:32 | ED_ITS ---
HPI - Arrhythmia/Palpitations General Chief Complaint: Arrhythmia/Palpitations Stated Complaint: afib heart rate 159/53 pills not working Time Seen by Provider: 06/13/23 13:11 Source: patient and family Mode of arrival: Ambulatory History of Present Illness HPI narrative: 67-year-old male. Had an initial episode of atrial fibrillation approximately 1 week ago. Was seen here in the emergency department. Was given metoprolol which did not change his tachycardia. Received a bolus of Cardizem. Per the note this improved his heart rate but was still in AFib. Was discharged home on oral Cardizem and anticoagulation. He states that he has been taking all of his medications as directed. Earlier today he noticed that his heart rate was elevated. No chest pain. No shortness of breath. He took a dose of Cardizem. It improved his heart rate for approximately 1 hour and then the tachycardia returned. He took another dose of the Cardizem however he has been persistently tachycardic in the 150 since then. He has taken his Eliquis as directed. He has a follow-up with Cardiology in approximately 1 week. Related Data Home Medications Medication Instructions Recorded Confirmed tramadol 50 mg tablet 50 mg PO Q6H PRN pain 06/13/23 06/13/23 Previous Rx's Medication Instructions Recorded allopurinol 300 mg tablet 300 mg PO DAILY #90 tabs 12/29/22 acetaminophen 325 mg capsule 650 mg (2 x 325 mg) PO QID PRN 06/02/23 (Tylenol) pain #60 caps diltiazem HCl 180 mg 180 mg PO QAM #30 caps 06/07/23 capsule,extended release 24 hr spironolactone 25 mg tablet 25 mg PO DAILY #30 tabs 06/07/23 apixaban 5 mg tablet (Eliquis) 5 mg PO BID #3 tabs 06/12/23 Allergies Allergy/AdvReac Type Severity Reaction Status Date / Time penicillin G Allergy Severe Hives Verified 06/13/23 13:02 Sulfa (Sulfonamide Allergy Severe Hives Verified 06/13/23 13:02 Antibiotics) Review of Systems Review of Systems ROS Unobtainable: All systems reviewed & are unremarkable except as noted in HPI and below Patient History Medical History Sarcoidosis Chronic bilateral low back pain with bilateral sciatica Chronic right hip pain History of fracture of right hip Chronic left-sided low back pain without sciatica Meralgia paresthetica, left lower limb Tinea corporis Trigger finger of right hand Upper extremity somatic dysfunction Degenerative arthritis of knee, bilateral Synovial cyst of popliteal space [De Paz], left knee Swelling of left knee joint Somatic dysfunction of lower extremity Pelvic somatic dysfunction Sacral region somatic dysfunction Segmental and somatic dysfunction of abdomen and other regions Lumbar region somatic dysfunction Left knee pain Low back pain Bilateral hand pain Eosinophilia, unspecified Segmental and somatic dysfunction of rib cage Rib pain on left side Unexplained weight gain Hyperlipidemia, mixed Vitamin D deficiency Allergies Abnormal chest xray (~1978) Gout (~1988) Mumps Herpes (~1977) Hepatitis C Retinal detachment (~2004) Hearing loss (~2009) Cataracts, bilateral Personal history of sarcoidosis (~1978) RINCON (dyspnea on exertion) Surgical History Anesthesia History of surgery History of hip replacement Family History Father History of heart disease Hyperlipidemia Hypertension Mother Cancer Diabetes mellitus Brother Diabetes mellitus History of heart disease Sister Stroke Atrial fibrillation Grandfather Cancer Grandmother History of heart disease Grandmother No problems noted. Social History marital status: household members: spouse lives independently: Yes occupational status: employed Smoking Status: Never smoker alcohol intake: current substance use type: does not use Smoking Status: Never smoker alcohol intake frequency: a few times a week Substance Use Type: does not use Exam Initial Vital Signs Initial Vital Signs: Vital Signs Temperature 98.5 F 06/13/23 12:55 Pulse Rate 160 H 06/13/23 12:55 Respiratory Rate 16 06/13/23 12:55 Blood Pressure 112/70 06/13/23 12:55 Pulse Oximetry 97 06/13/23 12:55 Oxygen Delivery Method Room Air 06/13/23 12:55 Const General: cooperative HENMT Head: normal to inspection and normocephalic Resp Effort & Inspection: normal respiratory effort Auscultation: clear to auscultation bilaterally Cardio Rate: tachycardic Rhythm: regular rhythm GI Inspection: normal to inspection Skin General: no rashes or lesions noted Neuro General: patient alert, patient awake and moves all extremities Extrem General: normal to inspection and capillary refill normal Course Orders Ordered: ED Orders 06/13/23 13:02 XR chest 1V Stat EKG-12 Lead Stat 06/13/23 13:12 Comprehensive Metabolic Panel Stat Lipase Stat Magnesium Stat PTT Partial Thromboplastin Yoel Stat Prothrombin Time INR Stat Troponin & CK Cardiac Panel Stat 06/13/23 13:19 Complete Blood Count AUTO DIFF Stat 06/13/23 15:23 EKG-12 Lead Stat Acetaminophen (Acetaminophen 325 Mg Tablet) 650 mg PO Q6H PRN PRN Reason: Fever/Mild Pain (1-3) Amiodarone HCl/Dextrose (Nexterone) 360 mg in 200 mls @ 33.333 mls/hr IV NOW ONE; Protocol Stop: 06/13/23 21:34 Last Titration: 06/13/23 16:45 Dose: 33.33 mls/hr, 33.33 mls/hr Documented By: Admin: 06/13/23 15:45 Dose: 33.33 mls/hr, 33.33 mls/hr Documented By: RODRIGO Influenza Virus Vaccine (Influenza Hd Vaccine 0.7 Ml Syringe) 0.7 ml IM .ONCE ONE Stop: 06/15/23 17:03 Metoprolol Tartrate (Metoprolol Ir 25 Mg Tablet) 25 mg PO BID ONEL Naloxone HCl (Naloxone 0.4 Mg/Ml Vial) 0.2 mg IV Q2MIN PRN PRN Reason: Opiate Reversal Discontinued Medications Amiodarone HCl (Amiodarone 150 Mg/3 Ml Vial) 150 mg IV NOW ONE Stop: 06/13/23 14:23 Last Admin: 06/13/23 14:32 Dose: 150 mg Documented By: ANTONETTE Aspirin (Aspirin 81 Mg Chew Tab) 324 mg PO NOW ONE Stop: 06/13/23 13:03 Last Admin: 06/13/23 14:14 Dose: Not Given Documented By: ANTONETTE Diltiazem HCl (Diltiazem 5 Mg/Ml Sdv) 20 mg IV NOW ONE Stop: 06/13/23 13:35 Last Admin: 06/13/23 13:47 Dose: 20 mg Documented By: RODRIGO Metoprolol Tartrate (Metoprolol Tartrate 5 Mg/5 Ml Inj) 5 mg IV NOW ONE Stop: 06/13/23 15:41 Last Admin: 01/28/24 15:45 Dose: 5 mg Documented By: CTS Vital Signs Vital signs: Vital Signs - 8 hr 06/13/23 12:55 06/13/23 13:08 06/13/23 13:12 Temperature 98.5 F Pulse Rate 160 H 152 H 153 H Respiratory Rate 16 15 19 Blood Pressure 112/70 Pulse Oximetry 97 92 96 Oxygen Delivery Method Room Air 06/13/23 13:12 06/13/23 13:15 06/13/23 13:30 Temperature Pulse Rate 153 H 155 H Respiratory Rate 15 19 Blood Pressure 128/84 Pulse Oximetry 97 93 Oxygen Delivery Method 06/13/23 13:30 06/13/23 13:45 06/13/23 13:47 Temperature Pulse Rate 155 H 155 H Respiratory Rate 12 Blood Pressure 121/78 Pulse Oximetry 93 Oxygen Delivery Method 06/13/23 13:49 06/13/23 13:49 06/13/23 13:52 Temperature Pulse Rate 155 H Respiratory Rate 13 Blood Pressure 113/68 104/68 Pulse Oximetry 93 Oxygen Delivery Method 06/13/23 13:52 06/13/23 14:00 06/13/23 14:01 Temperature Pulse Rate 155 H 154 H 151 H Respiratory Rate 15 19 9 L Blood Pressure Pulse Oximetry 92 95 95 Oxygen Delivery Method 06/13/23 14:01 06/13/23 14:15 06/13/23 14:30 Temperature Pulse Rate 152 H 91 H Respiratory Rate 11 L 10 L Blood Pressure 114/74 Pulse Oximetry 96 97 Oxygen Delivery Method Room Air 06/13/23 14:30 06/13/23 14:45 06/13/23 15:00 Temperature Pulse Rate 134 H Respiratory Rate 19 Blood Pressure 121/72 137/64 Pulse Oximetry 96 Oxygen Delivery Method 06/13/23 15:00 06/13/23 15:20 06/13/23 15:30 Temperature Pulse Rate 97 H 130 H 151 H Respiratory Rate 23 47 H 23 Blood Pressure Pulse Oximetry 93 96 97 Oxygen Delivery Method 06/13/23 15:45 06/13/23 16:00 Temperature Pulse Rate 151 H 83 Respiratory Rate 19 41 H Blood Pressure Pulse Oximetry 95 96 Oxygen Delivery Method MDM - Arrhythmia/Palpitations Lab Data Attestation: I reviewed the patient's lab results. 06/13/23 13:19 06/13/23 13:12 Labs: Lab Results 06/13/23 06/13/23 Range/Units 13:12 13:19 WBC 10.1 (4.5-11.0) X10^3/uL RBC 4.88 (4.5-5.9) X10^6/uL Hgb 15.5 (13.5-17.5) g/dL Hct 45.6 (41-53) % MCV 93.5 (80-100) fL MCH 31.7 (26-34) PG MCHC 33.9 (30-36) % RDW 14.9 H (11.6-14.8) % Plt Count 259 (150-400) X10^3/uL Neut % (Auto) 62.7 (50-75) % Lymph % (Auto) 19.5 L (25-40) % Morgan % (Auto) 11.4 (3-14) % Eos % (Auto) 5.7 H (2-4) % Baso % (Auto) 0.7 (0-2) % Neut # (Auto) 6400 (3538-5952) /uL Lymph # (Auto) 2000 (9503-1925) /uL Morgan # (Auto) 1200 H (0-900) /uL Eos # (Auto) 600 H (0-450) /uL Baso # (Auto) 100 (0-100) /uL PT 14.6 H (9.4-12.5) SECONDS INR 1.3 (0.9-1.3) APTT 35 (25.1-36.5) SECONDS Sodium 137 (137-145) mmol/L Potassium 4.5 (3.4-5.1) mmol/L Chloride 99 (98-107) mmol/L Carbon Dioxide 26 (22-32) mmol/L BUN 19 (9-20) mg/dL Creatinine 0.93 (0.66-1.25) mg/dL Estimated GFR > 60 (>60) mL/min BUN/Creatinine Ratio 20.4 (6-22) Glucose 95 (80-110) mg/dL Calcium 9.7 (8.4-10.2) mg/dL Magnesium 2.0 (1.6-2.3) mg/dL Total Bilirubin 0.8 (0.2-1.3) mg/dL AST 33 (17-59) IU/L ALT 32 (<50) IU/L Alkaline Phosphatase 84 (38-126) U/L Total Creatine Kinase 51 L (55-170) U/L Troponin I 0.026 (0.01-0.034) ng/mL Total Protein 7.8 (6.3-8.2) g/dL Albumin 4.3 (3.5-5.0) g/dL Globulin 3.5 (1.7-4.1) g/dL Albumin/Globulin Ratio 1.2 (1.0-2.8) Lipase 72 (23-300) U/L Imaging Data Chest x-ray: Radiologist's Impresson: PROCEDURE: XR CHEST 1V INDICATIONS: chest pain TECHNIQUE: One view of the chest was acquired. COMPARISON: [facility], CR, XR CHEST 1V, 06/07/2023, 13:05. [facility], CT, CT ANGIO CHEST PE PROTOCOL, 06/07/2023, 16:52. FINDINGS: Surgical changes and devices: None. Lungs and pleura: Lungs are clear. No pleural effusions or pneumothorax. Mediastinum: Mediastinal contours appear normal. Heart size is normal. Bones and chest wall: No suspicious bony lesions. Age-appropriate bony degenerative changes are seen. Overlying soft tissues appear unremarkable. IMPRESSION: Portable chest within normal limits for age. ECG Data Attestation: I personally reviewed and interpreted this ECG as follows: Interpretation: Atrial flutter Ventricular rate of 154 Left axis deviation QRS [address] T wave changes MDM Narrative Medical decision making narrative: Patient was tachycardic however his heart rate was consistently in the 150s. Was given a bolus of Cardizem. This did little to improve his heart rate. Metoprolol did not work in the past. He is stable. Did discuss the case with Dr. Bunn on-call for cardiology who recommended amiodarone. Patient was given an initial bolus of amiodarone. He did have periods of time where he became rate controlled with a heart rate in the 70s and 80s. During this time he was clearly an a flutter. He was very quickly returned back to heart rate in the 150s. Unable to cardiovert the patient because he has only been on anticoagulation for less than 1 week and I can not confirm that he was ever back into sinus rhythm after he was discharged from the hospital a week ago. Discussed the case with Dr. Silveira hospitalist on-call. We will admit for rate control. Patient was started on an amiodarone drip. Discussed the need for the admission with the patient. He expressed understanding and agreement. Discharge Plan Departure Patient Disposition: Admitted As Inpatient Clinical Impression: Atrial flutter Admit Date/Time: 06/13/23 16:15 Admit Provider: Dion Silveira
[2023-06-13 13:33] LABS: INR 1.3 (0.9-1.3); Prothrombin Time 14.6 SECONDS (9.4-12.5)
[2023-06-13 13:36] LABS: PTT Partial Thromboplastin Tim 35 SECONDS (25.1-36.5)
[2023-06-13 13:37] LABS: Alanine Aminotransferase 32 IU/L (<50); Albumin 4.3 g/dL (3.5-5.0); Albumin Globulin Ratio 1.2 (1.0-2.8); Alkaline Phosphatase 84 U/L (38-126); Aspartate Aminotransferase 33 IU/L (17-59); BUN Creatinine Ratio 20.4 (6-22); Bilirubin Total 0.8 mg/dL (0.2-1.3); Blood Urea Nitrogen 19 mg/dL (9-20); Calcium 9.7 mg/dL (8.4-10.2); Carbon Dioxide 26 mmol/L (22-32); Chloride 99 mmol/L (98-107); Creatine Kinase 51 U/L (55-170); Estimated Glomerular Filt Rate > 60 mL/min (>60); Globulin 3.5 g/dL (1.7-4.1); Glucose 95 mg/dL (80-110); HEMOLYSIS 19 (0-50); Lipase 72 U/L (23-300); Potassium 4.5 mmol/L (3.4-5.1); Sodium 137 mmol/L (137-145); Total Protein 7.8 g/dL (6.3-8.2)
[2023-06-13] MEDS: dilTIAZem 5 MG/ML SDV 20 MG IV (13:47)
[2023-06-13 13:48] LABS: Troponin I 0.026 ng/mL (0.01-0.034)
--- NOTE | 2023-06-13 13:58 | PC.NURSE ---
break relief for primary RN Alena. Pt awake, alert, on all monitoring equipment, HR s/p osteopathic medicine teacher of dilt. Dr. hernadez aware of current VS. Pt denies SOB/dizziness. endorses mild discomfort to R chest, /10, intermittent. Pt up to BR, ambulatory, nad. upon return to bed, HR sustained 155. Dr. Hernadez aware.
--- NOTE | 2023-06-13 14:13 | PC.NURSE ---
pt going in and out of rhythm, rate slowed to 87-90 w/ frequent PVC's, Maricarmen Monique aware. rhythm consistent w/ a flutter; changed occured for short duration then returned to rapid rate, 150's.
[2023-06-13] MEDS: AMIODARONE 150 MG/3 ML VIAL IV (14:32)
--- NOTE | 2023-06-13 15:40 | PM.HP.1 ---
History of Present Illness History of Present Illness Date Patient Seen: 06/13/23 Time Patient Seen: 15:41 Date of Onset of Symptoms: 06/13/23 Chief complaint: afib heart rate 159/53 pills not working Narrative: The patient is a 67-year-old male with a history of asthma, sciatica, and hyperlipidemia who was seen in the emergency department on June 09 with atrial flutter. He also had elevated blood pressure at that time. The patient had been diagnosed 2 days previous with atrial fibrillation with rapid response and was started on diltiazem and Eliquis. At that point he was discharged on Eliquis as well as diltiazem 180 mg daily. He represents today with palpitations and atrial flutter which is not responding to his diltiazem. He notes that his 1st visit began just after a left hernia repair which was uncomplicated. Initially he responded to diltiazem and then today he felt a vibration which led him to check his heart rate with an oximeter. He was at about 150. He denies any associated dyspnea or chest pain. Upon arrival to ED he was in the 150s. Initially he was given IV diltiazem with minimal response. Case was discussed with Dr. Bunn who recommended amiodarone infusion. The patient was also given 5 of metoprolol IV in his responded with relatively good rate control at this point. He also remains normotensive. He denies a history of atrial fibrillation. He did have an echo about a week ago. This was fairly normal other than a mildly enlarged right ventricle with low-normal function and mild mitral regurgitation. Drinks alcohol about 3 times a week 1 or 2 drinks. He does not smoke. PENDING SALE TO [facility] Medical History Sarcoidosis Chronic bilateral low back pain with bilateral sciatica Chronic right hip pain History of fracture of right hip Chronic left-sided low back pain without sciatica Meralgia paresthetica, left lower limb Tinea corporis Trigger finger of right hand Upper extremity somatic dysfunction Degenerative arthritis of knee, bilateral Synovial cyst of popliteal space [De Paz], left knee Swelling of left knee joint Somatic dysfunction of lower extremity Pelvic somatic dysfunction Sacral region somatic dysfunction Segmental and somatic dysfunction of abdomen and other regions Lumbar region somatic dysfunction Left knee pain Low back pain Bilateral hand pain Eosinophilia, unspecified Segmental and somatic dysfunction of rib cage Rib pain on left side Unexplained weight gain Hyperlipidemia, mixed Vitamin D deficiency Allergies Abnormal chest xray (~1978) Gout (~1988) Mumps Herpes (~1977) Hepatitis C Retinal detachment (~2004) Hearing loss (~2009) Cataracts, bilateral Personal history of sarcoidosis (~1978) RINCON (dyspnea on exertion) Surgical History Anesthesia History of surgery History of hip replacement Family History Father History of heart disease Hyperlipidemia Hypertension Mother Cancer Diabetes mellitus Brother Diabetes mellitus History of heart disease Sister Stroke Atrial fibrillation Grandfather Cancer Grandmother History of heart disease Grandmother No problems noted. Social History marital status: household members: spouse lives independently: Yes occupational status: employed Smoking Status: Never smoker alcohol intake: current substance use type: does not use Meds Home Medications and Allergies Home Medications Medication Instructions Recorded Confirmed Type allopurinol 300 mg tablet 300 mg PO DAILY #90 tabs 12/29/22 06/02/23 Rx acetaminophen 325 mg capsule 650 mg (2 x 325 mg) PO QID PRN 06/02/23 Rx (Tylenol) pain #60 caps docusate sodium 100 mg capsule 100 mg PO BID #30 caps 06/02/23 Rx (Colace) ibuprofen 200 mg tablet 400 mg (2 x 200 mg) PO Q6H #60 tabs 06/02/23 Rx tramadol 50 mg tablet 50 mg PO Q6H PRN pain #15 tabs 06/02/23 Rx diltiazem HCl 180 mg 180 mg PO QAM #30 caps 06/07/23 Rx capsule,extended release 24 hr spironolactone 25 mg tablet 25 mg PO DAILY #30 tabs 06/07/23 Rx apixaban 5 mg tablet (Eliquis) 5 mg PO BID #3 tabs 06/12/23 Rx Allergies Allergy/AdvReac Type Severity Reaction Status Date / Time penicillin G Allergy Severe Hives Verified 06/13/23 13:02 Sulfa (Sulfonamide Allergy Severe Hives Verified 06/13/23 13:02 Antibiotics) Review of Systems Review of Systems Narrative: All else reviewed and otherwise unremarkable except as noted in the history and physical. Exam Vital Signs (past 8 hours): - 06/13/23 12:55 06/13/23 13:08 06/13/23 13:12 Temperature 98.5 F Pulse Rate 160 H 152 H 153 H Respiratory Rate 16 15 19 Blood Pressure 112/70 Pulse Oximetry 97 92 96 Oxygen Delivery Method Room Air 06/13/23 13:12 06/13/23 13:15 06/13/23 13:30 Temperature Pulse Rate 153 H 155 H Respiratory Rate 15 19 Blood Pressure 128/84 Pulse Oximetry 97 93 Oxygen Delivery Method 06/13/23 13:30 06/13/23 13:45 06/13/23 13:47 Temperature Pulse Rate 155 H 155 H Respiratory Rate 12 Blood Pressure 121/78 Pulse Oximetry 93 Oxygen Delivery Method 06/13/23 13:49 06/13/23 13:49 06/13/23 13:52 Temperature Pulse Rate 155 H Respiratory Rate 13 Blood Pressure 113/68 104/68 Pulse Oximetry 93 Oxygen Delivery Method 06/13/23 13:52 06/13/23 14:00 06/13/23 14:01 Temperature Pulse Rate 155 H 154 H 151 H Respiratory Rate 15 19 9 L Blood Pressure Pulse Oximetry 92 95 95 Oxygen Delivery Method 06/13/23 14:01 06/13/23 14:15 06/13/23 14:30 Temperature Pulse Rate 152 H 91 H Respiratory Rate 11 L 10 L Blood Pressure 114/74 Pulse Oximetry 96 97 Oxygen Delivery Method Room Air 06/13/23 14:30 Temperature Pulse Rate Respiratory Rate Blood Pressure 121/72 Pulse Oximetry Oxygen Delivery Method Oxygen Delivery Method Room Air Narrative Exam Narrative: NAD, normocephalic skull. Patient is in no acute distress. Normal speech. Pupils are symmetric, EOMI, anicteric sclera. Neck is supple, midline trachea. No adenopathy. Lungs are clear, normal rate and effort. Heart is irregular and tachycardic without murmur. Abdomen is soft, nontender. Extremities are free of edema with good pedal and radial pulses. These are tachycardic. Joints are free of deformity. Skin is free of rash or lesions. Left hernia repair is notable for some subcutaneous induration but otherwise unremarkable. No evidence of redness, warmth or drainage. Objective ECG Impression: Atrial flutter with RVR. Imaging CT scan - chest: Radiologist's impression: No pulmonary embolus. Reticulation and scattered ground-glass opacities suggesting interstitial and early pulmonary edema. This may be due to cardiogenic edema or increased fluid status. Mild bilateral hilar adenopathy can be seen in the setting of CHF. This is otherwise nonspecific. Dictated by: Bridget Abarca M.D. on 06/07/2023 at 17:21 Chest x-ray: Radiologist's impression: IMPRESSION: Portable chest within normal limits for age. Dictated by: Jabier Calderon M.D. on 06/13/2023 at 13:12 Echo: Radiologist's impression: 06/07/2023 1) Normal left ventricular thickness and size with low normal systolic function (EF 50-55%). 2) Mildly enlarged right ventricle with low normal function. 3) There is mild mitral regurgitation. 4) No prior Echo available for comparison. Labs 06/13/23 13:19 06/13/23 13:12 Labs: Laboratory Results - last 24 hr 06/13/23 06/13/23 13:12 13:19 WBC 10.1 RBC 4.88 Hgb 15.5 Hct 45.6 MCV 93.5 MCH 31.7 MCHC 33.9 RDW 14.9 H Plt Count 259 Neut % (Auto) 62.7 Lymph % (Auto) 19.5 L [place] % (Auto) 11.4 Eos % (Auto) 5.7 H Baso % (Auto) 0.7 Neut # (Auto) 6400 Lymph # (Auto) 2000 [place] # (Auto) 1200 H Eos # (Auto) 600 H Baso # (Auto) 100 PT 14.6 H INR 1.3 APTT 35 Sodium 137 Potassium 4.5 Chloride 99 Carbon Dioxide 26 BUN 19 Creatinine 0.93 Estimated GFR > 60 BUN/Creatinine Ratio 20.4 Glucose 95 Calcium 9.7 Magnesium 2.0 Total Bilirubin 0.8 AST 33 ALT 32 Alkaline Phosphatase 84 Total Creatine Kinase 51 L Troponin I 0.026 Total Protein 7.8 Albumin 4.3 Globulin 3.5 Albumin/Globulin Ratio 1.2 Lipase 72 Assessment & Plan Assessment & Plan narrative: 1. Atrial flutter with rapid response, present on admission and active. 2. Hypertension, present on admission and active. 3. Recent Eliquis start for anticoagulation (AF), present on admission and active. 4. HLD. Present on admission stable. 5. Remote sarcoidosis, not present on admission and not active. Plan: -amiodarone was bolus in the ED will be followed by a 24 hour infusion for rate control and possible chemical cardioversion. -we will continue Eliquis. -we will monitor blood pressure, and start metoprolol orally for rate control measures and blood pressure control. He is full resuscitation. Proxy: . Time Spent With Patient Time with patient: 30 to 49 minutes with 50% spent counseling/coordinating care Quality MIPS - Admit I confirm the patient?s Advance Care Plan is present, Code status is documented, Surrogate decision maker is in patient?s record [If Yes, STOP here]: Yes MIPS - Meds 'Current medications' to include all prescriptions, [id number] products, herbals, cannabis/cannabidiol products, and vitamin/mineral/dietary (nutritional) supplements. I have utilized all available resources to obtain, update, or review the patient?s current medications. [If Yes, STOP here]: Yes
[2023-06-13] MEDS: AMIODARONE 360 MG/200 ML PIGGYBACK 33.33 MG IV (15:45)
[2023-06-13] MEDS: METOPROLOL TARTRATE 5 MG/5 ML INJ IV (15:45)
[2023-06-13] MEDS: METOPROLOL IR 25 MG TABLET PO (18:16)
--- NOTE | 2023-06-13 18:49 | PC.NURSE ---
pt declines flu vaccine at this time. He states he will get vaccine after admission
[2023-06-13] MEDS: APIXABAN 5 MG TABLET PO (20:23)
[2023-06-13] MEDS: CYCLOBENZAPRINE 10 MG TABLET PO (20:23)
[2023-06-13 20:50] LABS: MRSA (Nasal) PCR Not Detected (Not Detect)
[2023-06-13] MEDS: AMIODARONE 360 MG/200 ML PIGGYBACK 16.7 MG IV (21:21)
[2023-06-14] VITALS (35 sets, daily range): BP systolic 98–123; BP diastolic 60–72; PULSE 57–72; RESP 11–40; TEMP 36.7; O2SAT 86–98
[2023-06-14 05:30] LABS: Add Manual Diff / Slide Review NO; Basophils Absolute Auto 100 /uL (0-100); Basophils Percent Auto 1.7 % (0-2); Eosinophils Absolute Auto 700 /uL (0-450); Hematocrit 41.4 % (41-53); Lymphocytes Absolute Auto 1500 /uL (1100-4500); Lymphocytes Percent Auto 17.3 % (25-40); Mean Corpuscular HGB Conc 33.8 % (30-36); Mean Corpuscular Hemoglobin 31.5 PG (26-34); Mean Corpuscular Volume 93.1 fL (80-100); Monocytes Absolute Auto 800 /uL (0-900); Monocytes Percent Auto 9.6 % (3-14); Neutrophils Absolute Auto 5400 /uL (1500-7000); Neutrophils Percent Auto 63.4 % (50-75); Platelet Count 206 X10^3/uL (150-400); Red Blood Cell Count 4.45 X10^6/uL (4.5-5.9); Red Cell Distribution Width 14.5 % (11.6-14.8); White Blood Cell Count 8.6 X10^3/uL (4.5-11.0)
[2023-06-14 05:42] LABS: Blood Urea Nitrogen 20 mg/dL (9-20); Calcium 9.2 mg/dL (8.4-10.2); Carbon Dioxide 27 mmol/L (22-32); Chloride 102 mmol/L (98-107); Estimated Glomerular Filt Rate > 60 mL/min (>60); Glucose 107 mg/dL (80-110); HEMOLYSIS < 15 (0-50); Potassium 4.3 mmol/L (3.4-5.1); Sodium 134 mmol/L (137-145)
[2023-06-14] MEDS: allopurinoL 100 MG TABLET 300 MG PO (08:47)
[2023-06-14] MEDS: METOPROLOL IR 25 MG TABLET PO (08:48)
[2023-06-14] MEDS: APIXABAN 5 MG TABLET PO (08:48)
[2023-06-14] MEDS: AMIODARONE 200 MG TABLET 400 MG PO (09:12)
--- NOTE | 2023-06-14 09:25 | CM.DANOTE ---
DCP Assessment Note pt is a 67yo M here following afib. On amiodarone drip, converting to PO, pending how pt tolerates may dc home today. PCP Dong Pedersener [facility] and commercial MONUMENT MASON reviewed EMR. MONUMENT MASON entered room and introduced self and role. Pt resting in bed. Pt lives with spouse Court (p [phone]) in [place]. Pt has a son Alfredo in [place] ([phone]) as an emergency contact. Pt indep/active/drives at baseline. reports no CM needs. Plan: pending medical stability, dc home with spouse support in POV. No additional CM needs identified at this time, will continue to follow as needed. DAQUAN Velasquez Discharge Planning/Care Management CM Discharge Assessment Start: 06/14/23 09:24 Freq: Status: Active Protocol: Document 06/14/23 09:24 (Rec: 06/14/23 09:25 [id number]) Discharge Planning Assessment Assigned Department Secretary DAQUAN Reynolds DPOA/Assigned Designee Name Court spouse Contact Information [phone] Advance Directives? No History Provided By Patient Prior Living Arrangements House Household Members spouse Type of transporation used prior to Drives own vehicle admit Independent with ADL's Yes Is patient alert and oriented? Yes Barriers to Discharge No Discharge Plan Home Transportation Arrangement spouse in POV Whiteboard Updated in Patient Room with Yes name and ext. # of Department Secretary Review Status In Process Next Review Type Continued Stay Review
--- NOTE | 2023-06-14 10:25 | P.DS_ITS ---
History of Present Illness History of Present Illness Chief complaint: afib heart rate 159/53 pills not working Narrative: The patient is a 67-year-old male with a history of asthma, sciatica, and hyperlipidemia who was seen in the emergency department on June 09 with atrial flutter. He also had elevated blood pressure at that time. The patient had been diagnosed 2 days previous with atrial fibrillation with rapid response and was started on diltiazem and Eliquis. At that point he was discharged on Eliquis as well as diltiazem 180 mg daily. He represents today with palpitations and atrial flutter which is not responding to his diltiazem. He notes that his 1st visit began just after a left hernia repair which was uncomplicated. Initially he responded to diltiazem and then today he felt a vibration which led him to check his heart rate with an oximeter. He was at about 150. He denies any associated dyspnea or chest pain. Upon arrival to ED he was in the 150s. Initially he was given IV diltiazem with minimal response. Case was discussed with Dr. Bunn who recommended amiodarone infusion. The patient was also given 5 of metoprolol IV in his responded with relatively good rate control at this point. He also remains normotensive. He denies a history of atrial fibrillation. He did have an echo about a week ago. This was fairly normal other than a mildly enlarged right ventricle with low-normal function and mild mitral regurgitation. Drinks alcohol about 3 times a week 1 or 2 drinks. He does not smoke. Discharge Providers Provider Date of admission: 06/13/23 16:15 Discharge Date: 06/14/23 Primary care physician: Dong Reyna DO Consults: None Discharge provider: Dion Silveira MD Summary Hospital Course Discharge Diagnosis: 1. Atrial flutter with rapid response, present on admission and resolved (converted on IV amiodarone). 2. Hypertension, present on admission and active. 3. Recent Eliquis start for anticoagulation (AF), present on admission and active. 4. HLD. Present on admission stable. 5. Remote sarcoidosis, not present on admission and not active. Hospital Course: The patient was admitted for atrial flutter with rapid response. The patient was treated with an IV amiodarone bolus and infusion. He converted to sinus rhythm. On the morning of discharge he was feeling well and had sinus rhythm with heart rate in the 70s. The patient was stable for discharge will be placed on amiodarone 400 b.i.d. as he has an appointment with Cardiology within the next 7 days. Anticipate a taper after that time. He will stop spironolactone and continue diltiazem for breakthrough rate control. Status at Discharge Cognitive/behavioral status at discharge: oriented Functional status at discharge: independent ambulation Overall status at discharge: patient is back to baseline Time Spent with Patient Time spent: Greater than 30 minutes Exam Vital Signs (past 8 hours): - 06/14/23 02:30 06/14/23 02:45 06/14/23 03:00 Temperature Pulse Rate 60 66 61 Respiratory Rate 13 20 12 Blood Pressure Pulse Oximetry 95 94 96 06/14/23 03:00 06/14/23 03:15 06/14/23 03:30 Temperature Pulse Rate 61 58 L Respiratory Rate 13 13 Blood Pressure 116/60 Pulse Oximetry 94 94 06/14/23 03:45 06/14/23 04:00 06/14/23 04:00 Temperature Pulse Rate 60 61 Respiratory Rate 13 11 L Blood Pressure 98/64 Pulse Oximetry 94 94 06/14/23 04:15 06/14/23 04:30 06/14/23 04:45 Temperature Pulse Rate 59 L 58 L 63 Respiratory Rate 13 14 12 Blood Pressure Pulse Oximetry 93 93 95 06/14/23 05:00 06/14/23 05:00 06/14/23 05:15 Temperature Pulse Rate 65 57 L Respiratory Rate 13 16 Blood Pressure 111/63 Pulse Oximetry 93 94 06/14/23 05:30 06/14/23 05:45 06/14/23 06:00 Temperature Pulse Rate 59 L 59 L Respiratory Rate 13 22 Blood Pressure 108/62 Pulse Oximetry 95 96 06/14/23 06:00 06/14/23 06:15 06/14/23 07:05 Temperature Pulse Rate 57 L 57 L 63 Respiratory Rate 17 13 16 Blood Pressure Pulse Oximetry 95 95 86 L 06/14/23 07:06 06/14/23 07:06 06/14/23 07:15 Temperature Pulse Rate 64 62 Respiratory Rate 20 22 Blood Pressure 123/69 Pulse Oximetry 97 97 06/14/23 08:00 06/14/23 08:00 06/14/23 08:15 Temperature Pulse Rate 60 72 Respiratory Rate 15 40 H Blood Pressure 113/65 Pulse Oximetry 94 89 L 06/14/23 09:00 06/14/23 09:00 06/14/23 09:00 Temperature 98.1 F Pulse Rate 65 Respiratory Rate 20 Blood Pressure 121/66 Pulse Oximetry 96 06/14/23 09:15 Temperature Pulse Rate 67 Respiratory Rate 30 H Blood Pressure Pulse Oximetry 98 Oxygen Delivery Method Room Air Oxygen Flow Rate 0 Narrative Exam Narrative: NAD, fluent speech Lungs are clear, normal effort. Heart is regular, no murmur. Abdomen is flat. Extremities are free of edema, gait is normal. Objective ECG Impression: Atrial flutter with RVR Imaging CT scan - chest: Radiologist's impression: No pulmonary embolus. Reticulation and scattered ground-glass opacities suggesting interstitial and early pulmonary edema. This may be due to cardiogenic edema or increased fluid status. Mild bilateral hilar adenopathy can be seen in the setting of CHF. This is otherwise nonspecific. 06/07 Echo: Radiologist's impression: 06/07/2023 1) Normal left ventricular thickness and size with low normal systolic function (EF 50-55%). 2) Mildly enlarged right ventricle with low normal function. 3) There is mild mitral regurgitation. 4) No prior Echo available for comparison. Labs 06/14/23 05:17 06/14/23 05:17 Labs: Laboratory Results - last 24 hr 06/13/23 06/13/23 06/13/23 13:12 13:19 19:37 WBC 10.1 RBC 4.88 Hgb 15.5 Hct 45.6 MCV 93.5 MCH 31.7 MCHC 33.9 RDW 14.9 H Plt Count 259 Neut % (Auto) 62.7 Lymph % (Auto) 19.5 L [place] % (Auto) 11.4 Eos % (Auto) 5.7 H Baso % (Auto) 0.7 Neut # (Auto) 6400 Lymph # (Auto) 2000 [place] # (Auto) 1200 H Eos # (Auto) 600 H Baso # (Auto) 100 PT 14.6 H INR 1.3 APTT 35 Sodium 137 Potassium 4.5 Chloride 99 Carbon Dioxide 26 BUN 19 Creatinine 0.93 Estimated GFR > 60 BUN/Creatinine Ratio 20.4 Glucose 95 Calcium 9.7 Magnesium 2.0 Total Bilirubin 0.8 AST 33 ALT 32 Alkaline Phosphatase 84 Total Creatine Kinase 51 L Troponin I 0.026 Total Protein 7.8 Albumin 4.3 Globulin 3.5 Albumin/Globulin Ratio 1.2 Lipase 72 Nasal Screen MRSA (PCR) Not detected 06/14/23 05:17 WBC 8.6 RBC 4.45 L Hgb 14.0 Hct 41.4 MCV 93.1 MCH 31.5 MCHC 33.8 RDW 14.5 Plt Count 206 Neut % (Auto) 63.4 Lymph % (Auto) 17.3 L [place] % (Auto) 9.6 Eos % (Auto) 8.0 H Baso % (Auto) 1.7 Neut # (Auto) 5400 Lymph # (Auto) 1500 [place] # (Auto) 800 Eos # (Auto) 700 H Baso # (Auto) 100 PT INR APTT Sodium 134 L Potassium 4.3 Chloride 102 Carbon Dioxide 27 BUN 20 Creatinine 0.87 Estimated GFR > 60 BUN/Creatinine Ratio 23.0 H Glucose 107 Calcium 9.2 Magnesium Total Bilirubin AST ALT Alkaline Phosphatase Total Creatine Kinase Troponin I Total Protein Albumin Globulin Albumin/Globulin Ratio Lipase Nasal Screen MRSA (PCR) [facility] Medical History Sarcoidosis Chronic bilateral low back pain with bilateral sciatica Chronic right hip pain History of fracture of right hip Chronic left-sided low back pain without sciatica Meralgia paresthetica, left lower limb Tinea corporis Trigger finger of right hand Upper extremity somatic dysfunction Degenerative arthritis of knee, bilateral Synovial cyst of popliteal space [De Paz], left knee Swelling of left knee joint Somatic dysfunction of lower extremity Pelvic somatic dysfunction Sacral region somatic dysfunction Segmental and somatic dysfunction of abdomen and other regions Lumbar region somatic dysfunction Left knee pain Low back pain Bilateral hand pain Eosinophilia, unspecified Segmental and somatic dysfunction of rib cage Rib pain on left side Unexplained weight gain Hyperlipidemia, mixed Vitamin D deficiency Allergies Abnormal chest xray (~1978) Gout (~1988) Mumps Herpes (~1977) Hepatitis C Retinal detachment (~2004) Hearing loss (~2009) Cataracts, bilateral Personal history of sarcoidosis (~1978) RINCON (dyspnea on exertion) Surgical History Anesthesia History of surgery History of hip replacement Family History Father History of heart disease Hyperlipidemia Hypertension Mother Cancer Diabetes mellitus Brother Diabetes mellitus History of heart disease Sister Stroke Atrial fibrillation Grandfather Cancer Grandmother History of heart disease Grandmother No problems noted. Social History marital status: household members: spouse lives independently: Yes occupational status: employed Smoking Status: Never smoker alcohol intake: current substance use type: does not use Discharge Assessment & Plan Assessment and Plan Assessment: 1. Atrial flutter with rapid response, present on admission and resolved on an amiodarone infusion. 2. Hypertension, present on admission and active. 3. Recent Eliquis start for anticoagulation (AF), present on admission and active. 4. HLD. Present on admission stable. 5. Remote sarcoidosis, not present on admission and not active. Plan of Treatment: Will discharge home on diltiazem 180 p.o. daily, Eliquis b.i.d., and amiodarone 400 b.i.d.. The patient will have 14 days of amiodarone but sees Dr. Holloway of Cardiology next Wednesday. Electronic message will be sent to Dr. Daniels regarding this admission and discharge plan. Discharge Plan Discharge Plan Patient Disposition: Home Provider Discharge Comment: Stable for discharge, converted to sinus rhythm on an amiodarone drip. Will discharge on oral amio with close cardiology follow- up. Discharge orders & Medications Prescriptions: New amiodarone 200 mg Tablet 400 mg PO BIDWM Qty: 28 0RF Continued allopurinol 300 mg tablet 300 mg PO DAILY Qty: 90 3RF Eliquis 5 mg tablet 5 mg PO BID Qty: 3 0RF Rx Instructions: Ran out of med for the weekend. tramadol 50 mg tablet 50 mg PO Q6H PRN (Reason: pain) Patient Comments: was taking r/t hernia repair acetaminophen [Tylenol] 325 mg capsule 650 mg PO QID PRN (Reason: pain) Qty: 60 0RF diltiazem HCl 180 mg capsule,extended release 24hr 180 mg PO QAM Qty: 30 0RF Rx Instructions: instructed to take additional pill if HR remains elevated Discontinued spironolactone 25 mg tablet 25 mg PO DAILY Qty: 30 0RF Medication counseling provided by Pharmacist: No Follow up/Referrals: Axel,Dong C, DO [Primary Care Provider] - Discharge Health Status Multidrug resistant organism: No MDRO Diet/Activity/Treatments Diet: Diet as Tolerated Visit Report/Discharge Packet Stand Alone Forms: Congestive Heart Failure, Patient Portal/API Discharge Data Primary Care Provider: Dong Reyna VTE Deep Vein Thrombosis/Pulmonary Embolism Present on Admission: No
--- NOTE | 2023-06-14 13:11 | PC.NURSE ---
Discharge: Pt A&Ox4, discharge paperwork discussed, questions regarding medications and diet answered. IV d/c'd, telemetry removed. Pt dressed independently. Pt wheeled via WC to private vehicle by [facility] at approximately 1305.
== END 2023-06-14 13:08 | disposition home or self-care (01) ==
LOC: ED 15:40 → ICU 06-14 08:24 → AC 06-14 11:16 → ICU 06-14 11:16
PROVIDERS: Admitting Provider Hospitalist; Emergency Provider Emergency Medicine; PCP Family Medicine; Referring Provider Emergency Medicine; Visit Provider Hospitalist
DX: I48.92 Unspecified atrial flutter (principal); I10 Essential (primary) hypertension; E78.5 Hyperlipidemia, unspecified; Z79.01 Long term (current) use of anticoagulants
CPT/HCPCS: 36415; 71045; 80048; 80053; 82550; 83690; 83735; 84484; 85025; 85610; 85730; 87797; 93005; 96365; 96366; 96375; 96376; 99284; 99285; G0378; J0282

== ENCOUNTER 2023-08-13 12:37 | Emergency (ER) | payer BC, OTHER, SELFPAY ==
[2023-06-13 16:31] VITALS: BMI 31.4
[2023-08-13 12:40] VITALS: BP 123/75; PULSE 106; RESP 18; TEMP 37.1; O2SAT 95; BMI 30.4
[2023-08-13 12:54] VITALS: BMI 30.4
[2023-08-13 13:38] LABS: Strep Grp A by PCR Rapid Negative (Negative)
[2023-08-13 13:42] LABS: Influenza A - CEPHEID Flu A NEGATIVE (NEGATIVE); Influenza B - CEPHEID Flu B NEGATIVE (NEGATIVE); Respiratory Syncytial Virus Negative (Negative)
[2023-08-13 13:43] LABS: COVID-19 CEPHEID 4-PLEX PCR Negative (Negative)
--- NOTE | 2023-08-13 14:05 | ED_ITS ---
HPI - URI/Sore Throat <Araceli Hall PA-C - Last Filed: 08/13/23 18:27> General Chief Complaint: Upper Respiratory Symptoms Stated Complaint: states poss rsv or strep/pre ablasion Time Seen by Provider: 08/13/23 13:04 Source: patient and family Mode of arrival: Ambulatory History of Present Illness HPI Narrative: Patient is a 68-year-old male with chronic conditions HLD, hypertension, atrial flutter and remote sarcoidosis presenting for evaluation of URI symptoms starting 3-4 days ago. He states that he has had a continuous sore throat. He states that he has been able to eat and drink water, but he has some increased discomfort in his throat particularly in the evening in the afternoon. He reports he developed some runny nose today as well as a hoarse voice. He feels his congestion is running down the back of his throat. He states that he has had occasional coughing as well as wheezing. He reports that the wheezing seems to come and go and occasionally clears with coughing. He reports increased green sputum production. He states his cough is not keeping him awake up at night, but is occurring occasionally throughout the day. He denies any presence of known fever or body aches or chills, but has felt under the weather. He is concerned about feeling some increased fatigue yesterday evening and today. He also noted an elevated heart rate while at rest last night and this morning. He states that his watch did a rhythm which showed that he was in atrial fibrillation for about an hour and a half this morning. He states that this has not occurred since he was given amiodarone in May. He wants to make sure that he has nothing which will interfere with his ablation on Wednesday. He denies any chest pain. He was diagnosed with atrial flutter and atrial fibrillation on June 09. He was treated with IV amiodarone in the hospital and converted to sinus rhythm. He was given amiodarone at discharge and has been following up with Cardiology. He is also taking diltiazem, Eliquis and spironolactone. Related Data Home Medications Medication Instructions Recorded Confirmed amiodarone 200 mg tablet 200 mg PO DAILY 07/30/23 spironolactone 25 mg tablet 25 mg PO DAILY 07/30/23 07/30/23 Previous Rx's Medication Instructions Recorded allopurinol 300 mg tablet 300 mg PO DAILY #90 tabs 12/29/22 acetaminophen 325 mg capsule 650 mg (2 x 325 mg) PO QID PRN 06/02/23 (Tylenol) pain #60 caps diltiazem HCl 180 mg 180 mg PO QAM #30 caps 06/07/23 capsule,extended release 24 hr apixaban 5 mg tablet (Eliquis) 5 mg PO BID #3 tabs 06/12/23 Allergies Allergy/AdvReac Type Severity Reaction Status Date / Time penicillin G Allergy Severe Hives Verified 07/30/23 15:18 Sulfa (Sulfonamide Allergy Severe Hives Verified 07/30/23 15:18 Antibiotics) Review of Systems <Araceli Hall PA-C - Last Filed: 08/13/23 18:27> Review of Systems Narrative: See HPI Patient History <Araceli Hall PA-C - Last Filed: 08/13/23 18:27> Medical History Chronic neck pain Sarcoidosis Chronic bilateral low back pain with bilateral sciatica Chronic right hip pain History of fracture of right hip Chronic left-sided low back pain without sciatica Meralgia paresthetica, left lower limb Tinea corporis Trigger finger of right hand Upper extremity somatic dysfunction Degenerative arthritis of knee, bilateral Synovial cyst of popliteal space [De Paz], left knee Swelling of left knee joint Somatic dysfunction of lower extremity Pelvic somatic dysfunction Sacral region somatic dysfunction Segmental and somatic dysfunction of abdomen and other regions Lumbar region somatic dysfunction Left knee pain Low back pain Bilateral hand pain Eosinophilia, unspecified Segmental and somatic dysfunction of rib cage Rib pain on left side Unexplained weight gain Hyperlipidemia, mixed Vitamin D deficiency Allergies Abnormal chest xray (~1978) Gout (~1988) Mumps Herpes (~1977) Hepatitis C Retinal detachment (~2004) Hearing loss (~2009) Cataracts, bilateral Personal history of sarcoidosis (~1978) RINCON (dyspnea on exertion) Surgical History Anesthesia History of surgery History of hip replacement Family History Father History of heart disease Hyperlipidemia Hypertension Mother Cancer Diabetes mellitus Brother Diabetes mellitus History of heart disease Sister Stroke Atrial fibrillation Grandfather Cancer Grandmother History of heart disease Grandmother No problems noted. Social History marital status: household members: spouse lives independently: Yes occupational status: employed Smoking Status: Never smoker alcohol intake: current substance use type: does not use Smoking Status: Never smoker alcohol intake frequency: holidays/special occasions only Substance Use Type: does not use Exam <Araceli Hall PA-C - Last Filed: 08/13/23 18:27> Initial Vital Signs Initial Vital Signs: Vital Signs Temperature 98.7 F 08/13/23 12:40 Pulse Rate 106 H 08/13/23 12:40 Respiratory Rate 18 08/13/23 12:40 Blood Pressure 123/75 08/13/23 12:40 Pulse Oximetry 95 08/13/23 12:40 Oxygen Delivery Method Room Air 08/13/23 12:40 GENERAL: 68 year old patient appears stated age. Well-developed patient, in no acute distress. HEAD: Atraumatic. Normocephalic. EYES: Pupils equal round and reactive. No scleral icterus. No injection or drainage. ENT: Nose without bleeding, purulent drainage. Throat with mild erythema, no tonsillar hypertrophy or exudate. Airway patent. TMs pearly baugh with good COL, Nontender to mastoid, tragus or pinna palpation. NECK: Trachea midline. Non tender. No cervical lymphadenopathy CARDIOVASCULAR: Regular rate and rhythm without murmurs noted on exam. RESPIRATORY: Clear to auscultation. Breath sounds equal bilaterally. No wheezes, rales, or rhonchi. O2 sat during discussion ranges between 94 and 95%, patient has no accessory muscle use or difficulty speaking. No coughing during exam EXTREMITIES: No edema or joint tenderness. NEURO: AOx3. SKIN: No rash or erythema of visible areas <Breanne Panchal DO - Last Filed: 08/15/23 08:15> Initial Vital Signs Initial Vital Signs: Vital Signs Temperature 98.7 F 08/13/23 12:40 Pulse Rate 106 H 08/13/23 12:40 Respiratory Rate 18 08/13/23 12:40 Blood Pressure 123/75 08/13/23 12:40 Pulse Oximetry 95 08/13/23 12:40 Oxygen Delivery Method Room Air 08/13/23 12:40 Course <Araceli Hall PA-C - Last Filed: 08/13/23 18:27> Orders Ordered: ED Orders 08/13/23 12:47 Covid-19 + FLU A/B + RSV - PCR Stat Strep Grp A by PCR Rapid Stat Throat Culture Stat 08/13/23 14:33 EKG-12 Lead Stat 08/13/23 14:34 CXR [XR chest 2V] Stat 08/13/23 16:30 BNP [NT-proBNP (BNP-Adult 18+)] Stat CBC Auto Diff [Complete Blood Count AUTO DIFF] Stat CMP [Comprehensive Metabolic Panel] Stat Troponin I Stat 08/13/23 16:55 Urinalysis and Microscopic Stat 08/13/23 17:32 Blood Culture Stat Vital Signs Vital signs: Vital Signs - 8 hr 08/13/23 12:40 08/13/23 16:14 Temperature 98.7 F Pulse Rate 106 H 99 H Respiratory Rate 18 18 Blood Pressure 123/75 128/67 Pulse Oximetry 95 98 Oxygen Delivery Method Room Air Room Air <Breanne Panchal DO - Last Filed: 08/15/23 08:15> Orders Ordered: ED Orders 08/13/23 12:47 Covid-19 + FLU A/B + RSV - PCR Stat Strep Grp A by PCR Rapid Stat Throat Culture Stat 08/13/23 14:33 EKG-12 Lead Stat 08/13/23 14:34 CXR [XR chest 2V] Stat 08/13/23 16:30 BNP [NT-proBNP (BNP-Adult 18+)] Stat CBC Auto Diff [Complete Blood Count AUTO DIFF] Stat CMP [Comprehensive Metabolic Panel] Stat Troponin I Stat 08/13/23 16:55 Urinalysis and Microscopic Stat 08/13/23 17:32 Blood Culture Stat Vital Signs Vital signs: Vital Signs - 8 hr 08/13/23 12:40 08/13/23 16:14 Temperature 98.7 F Pulse Rate 106 H 99 H Respiratory Rate 18 18 Blood Pressure 123/75 128/67 Pulse Oximetry 95 98 Oxygen Delivery Method Room Air Room Air MDM - URI/Sore Throat <Araceli Hall PA-C - Last Filed: 08/13/23 18:27> Lab Data 08/13/23 16:30 08/13/23 16:30 Labs: Lab Results 08/13/23 08/13/23 08/13/23 Range/Units 12:47 16:30 16:55 WBC 18.3 H (4.5-11.0) X10^3/uL RBC 4.71 (4.5-5.9) X10^6/uL Hgb 14.4 (13.5-17.5) g/dL Hct 43.9 (41-53) % MCV 93.2 (80-100) fL MCH 30.5 (26-34) PG MCHC 32.8 (30-36) % RDW 15.1 H (11.6-14.8) % Plt Count 222 (150-400) X10^3/uL Neut % (Auto) 77.4 H (50-75) % Lymph % (Auto) 10.8 L (25-40) % [place] % (Auto) 9.7 (3-14) % Eos % (Auto) 1.7 L (2-4) % Baso % (Auto) 0.4 (0-2) % Neut # (Auto) 35353 H (1036-1700) /uL Lymph # (Auto) 2000 (5105-4850) /uL [place] # (Auto) 1800 H (0-900) /uL Eos # (Auto) 300 (0-450) /uL Baso # (Auto) 100 (0-100) /uL Sodium 138 (137-145) mmol/L Potassium 4.1 (3.4-5.1) mmol/L Chloride 101 (98-107) mmol/L Carbon Dioxide 31 (22-32) mmol/L BUN 16 (9-20) mg/dL Creatinine 0.79 (0.66-1.25) mg/dL Estimated GFR > 60 (>60) mL/min BUN/Creatinine Ratio 20.3 (6-22) Glucose 98 (80-110) mg/dL Calcium 9.5 (8.4-10.2) mg/dL Total Bilirubin 0.7 (0.2-1.3) mg/dL AST 30 (17-59) IU/L ALT 25 (<50) IU/L Alkaline Phosphatase 97 (38-126) U/L Troponin I 0.024 (0.01-0.034) ng/mL NT-Pro-B Natriuret Pep 310 H (<125) pg/mL Total Protein 8.3 H (6.3-8.2) g/dL Albumin 4.4 (3.5-5.0) g/dL Globulin 3.9 (1.7-4.1) g/dL Albumin/Globulin Ratio 1.1 (1.0-2.8) Urine Color Yellow Urine Appearance Clear Urine pH 6.5 (4.5-8.0) Ur Specific [place] 1.010 (1.000-1.035) Urine Protein Negative (Negative) Urine Glucose (UA) Negative (Negative) g/dL Urine Ketones 1+ H (NEGATIVE) Urine Occult Blood Negative (Negative) Urine Nitrate Negative (Negative) Urine Bilirubin Negative (NEGATIVE) Urine Urobilinogen 0.2 (0.2) E.U./dL Ur Leukocyte Esterase Negative (NEGATIVE) Urine RBC None seen (0-5/HPF) Urine WBC None seen (0-5/HPF) Ur Squamous Epith Cells None seen (0-5/HPF) Urine Bacteria None seen (None) Ur Culture Indicated? Cult not indicated Vol Urine Centrifuged 10ml (spun) SARS-CoV-2 (PCR) Negative (Negative) Influenza A (RT-PCR) Flu a negative (NEGATIVE) Influenza B (RT-PCR) Flu b negative (NEGATIVE) RSV (PCR) Negative (Negative) Group A Strep (PCR) Negative (Negative) Imaging Data Chest x-ray: Radiologist's Impression: PROCEDURE: XR CHEST 2V INDICATIONS: Increased sputum production, fatigue, cough TECHNIQUE: 2 views of the chest were acquired. COMPARISON: [facility], XR CHEST 1V, 06/13/2023, 13:05. [facility], XR CHEST 1V, 06/07/2023, 13:05. FINDINGS: Surgical changes and devices: None. Lungs and pleura: Lungs are clear. No pleural effusions or pneumothorax. Mediastinum: Mediastinal contours are normal. Heart size is normal. Bones and chest wall: No suspicious bony abnormalities. Soft tissues appear unremarkable. IMPRESSION: No acute cardiopulmonary abnormality is seen. Dictated by: Servando Cardozo M.D. on 08/13/2023 at 15:19 Approved by: Servando Cardozo M.D. on 08/13/2023 at 15:19 ECG Data Interpretation: Reviewed EKG. Prolonged DE interval at 2:20 a.m.. No evidence of atrial fibrillation on EKG. No T-wave abnormalities noted nor ST elevation present. MDM Narrative Medical decision making narrative: Patient is a 68-year-old male presenting for evaluation of URI symptoms x3 days. He has an ablation coming up in 4 days and wants to find out what may be going on and if it would interfere with his procedure. He endorses increased fatigue and had O2 sats of 94 and 95 during examination today. He also endorsed elevated heart rate last night as well as today with his watch showing an atrial fibrillation rhythm. He is slightly tachycardic during examination. His lung exam was clear with no evidence of difficulty breathing wheezes, rales or rhonchi. However, due to patient's endorse wheezes at home, increased fatigue, new diagnoses of atrial fibrillation, recommend EKG and chest x-ray rule out pneumonia and to evaluate heart rhythm. Multiple etiologies for patient's symptoms considered including, but not limited to: AFib, COVID, flu, RSV, pneumonia, sepsis, UTI Imaging reviewed: Chest x-ray showed no acute cardiopulmonary abnormality or evidence of pneumonia Labs: Elevated white count at 18k, no abnormalities in the electrolytes or kidney function, troponin was negative, BNP is 310, urine shows no evidence of bacteria on microscopic or blood. No urine culture indicated. COVID, flu, RSV, strep tested negative, throat culture is pending. Consultations: Discussed case with Dr. Panchal. Due to patient going into atrial fibrillation last night and this morning, recommend further evaluation with cardiac labs to include BNP, troponin, CBC and CMP. Reviewed results with Dr. Panchal. With clear chest x-ray as well as no significant findings in blood work aside from elevated white count, patient's condition is most likely due to a viral infection. Recommend continued conservative management including rest, increase fluids, Tylenol ibuprofen as needed. Recommend patient returned for further evaluation if he should develop any chest pain, severe fever, significant worsening fatigue or other concerning signs or symptoms. Findings and discharge diagnosis discussed with patient/family followed by verbalization of understanding Return precautions discussed with patient/family whom verbalize understanding of diagnosis and plan <Breanne Panchal, DO - Last Filed: 08/15/23 08:15> Lab Data Labs: Lab Results 03/29/24 03/29/24 03/29/24 Range/Units 12:47 16:30 16:55 WBC 18.3 H (4.5-11.0) X10^3/uL RBC 4.71 (4.5-5.9) X10^6/uL Hgb 14.4 (13.5-17.5) g/dL Hct 43.9 (41-53) % MCV 93.2 (80-100) fL MCH 30.5 (26-34) PG MCHC 32.8 (30-36) % RDW 15.1 H (11.6-14.8) % Plt Count 222 (150-400) X10^3/uL Neut % (Auto) 77.4 H (50-75) % Lymph % (Auto) 10.8 L (25-40) % [place] % (Auto) 9.7 (3-14) % Eos % (Auto) 1.7 L (2-4) % Baso % (Auto) 0.4 (0-2) % Neut # (Auto) 38156 H (5777-5795) /uL Lymph # (Auto) 2000 (6838-0161) /uL [place] # (Auto) 1800 H (0-900) /uL Eos # (Auto) 300 (0-450) /uL Baso # (Auto) 100 (0-100) /uL Sodium 138 (137-145) mmol/L Potassium 4.1 (3.4-5.1) mmol/L Chloride 101 (98-107) mmol/L Carbon Dioxide 31 (22-32) mmol/L BUN 16 (9-20) mg/dL Creatinine 0.79 (0.66-1.25) mg/dL Estimated GFR > 60 (>60) mL/min BUN/Creatinine Ratio 20.3 (6-22) Glucose 98 (80-110) mg/dL Calcium 9.5 (8.4-10.2) mg/dL Total Bilirubin 0.7 (0.2-1.3) mg/dL AST 30 (17-59) IU/L ALT 25 (<50) IU/L Alkaline Phosphatase 97 (38-126) U/L Troponin I 0.024 (0.01-0.034) ng/mL NT-Pro-B Natriuret Pep 310 H (<125) pg/mL Total Protein 8.3 H (6.3-8.2) g/dL Albumin 4.4 (3.5-5.0) g/dL Globulin 3.9 (1.7-4.1) g/dL Albumin/Globulin Ratio 1.1 (1.0-2.8) Urine Color Yellow Urine Appearance Clear Urine pH 6.5 (4.5-8.0) Ur Specific [place] 1.010 (1.000-1.035) Urine Protein Negative (Negative) Urine Glucose (UA) Negative (Negative) g/dL Urine Ketones 1+ H (NEGATIVE) Urine Occult Blood Negative (Negative) Urine Nitrate Negative (Negative) Urine Bilirubin Negative (NEGATIVE) Urine Urobilinogen 0.2 (0.2) E.U./dL Ur Leukocyte Esterase Negative (NEGATIVE) Urine RBC None seen (0-5/HPF) Urine WBC None seen (0-5/HPF) Ur Squamous Epith Cells None seen (0-5/HPF) Urine Bacteria None seen (None) Ur Culture Indicated? Cult not indicated Vol Urine Centrifuged 10ml (spun) SARS-CoV-2 (PCR) Negative (Negative) Influenza A (RT-PCR) Flu a negative (NEGATIVE) Influenza B (RT-PCR) Flu b negative (NEGATIVE) RSV (PCR) Negative (Negative) Group A Strep (PCR) Negative (Negative) ECG Data Interpretation: Reviewed EKG. Prolonged DE interval at 2:20 a.m.. No evidence of atrial fibrillation on EKG. No T-wave abnormalities noted nor ST elevation present. Rogernick sinus rhythm rate 99 DE interval 222 QRS [address] changes no T- wave inversions previous EKGs shows atrial flutter with a rate of 154 Discharge Plan Departure Patient Disposition: Home Clinical Impression: Viral infection Activity Restrictions/Additional Instructions: *You have been diagnosed with a viral infection. Thank you for coming in today for your care. You tested negative for COVID, flu, RSV and strep. Throat culture is pending we will notify you of results. We evaluated chest x-ray due to report of wheezing. Chest x-ray was clear with no signs of pneumonia or fluid. Due to the presence of atrial fibrillation you noted on your watch this morning and yesterday evening, we checked EKG which showed that you appeared to be in sinus rhythm at this time. Evaluation of your heart did not show any evidence of congestive heart failure or cardiac cause for your symptoms. Urine also was clear, so there has likely no need for antibiotics at this time. Your symptoms are most likely due to a viral infection. I recommend continued rest, fluids, Tylenol as needed for your symptoms. I recommend that you discuss with your picker / packer on Wednesday the findings today to evaluate whether you may continue with your procedure for cardiac ablation. It was a pleasure meeting you today. *Please follow up with your primary care provider in 2-3 days, call for an appointment. Let them know you were seen in the Emergency Department and that we ask that you be seen in follow up. We will electronically transmit a record of today's note if your PCP is in our system *If you do not have a primary care provider please contact the [facility] Resource line at [phone]. They will ask some questions about your medical history and help get you set up with a doctor in the community. *Return to Emergency Department if you should have any new, worsening or concerning symptoms, such as chest pain, fever greater than 101 F, shaking chills, worsening pain, persistent vomiting or other bothersome symptoms. Prescriptions: No Action allopurinol 300 mg tablet 300 mg PO DAILY Qty: 90 3RF Eliquis 5 mg tablet 5 mg PO BID Qty: 3 0RF Rx Instructions: Ran out of med for the weekend. amiodarone 200 mg tablet 200 mg PO DAILY spironolactone 25 mg tablet 25 mg PO DAILY acetaminophen [Tylenol] 325 mg capsule 650 mg PO QID PRN (Reason: pain) Qty: 60 0RF diltiazem HCl 180 mg capsule,extended release 24hr 180 mg PO QAM Qty: 30 0RF Rx Instructions: instructed to take additional pill if HR remains elevated Referrals: Dong Reyna DO [Primary Care Provider] - Stand Alone Forms: Patient Portal/API ED Sign-out <Breanne Panchal DO - Last Filed: 08/15/23 08:15> Cosign ED Attending Cosignature Attestation: I was consulted in regards to this patient. Presenting with upper respiratory like symptoms with history of atrial flutter. Initial upper respiratory evaluation with viral panel and chest x-ray were negative. Discussed doing more. He ruled out cardiac. I never actually saw and evaluated patient myself. But discussed results with [facility]. There is a leukocytosis but unclear reason. No evidence of pneumonia no UTI, I see no clear need for antibiotics at this time. He is not septic without fever hypotension tachycardia. I was available for consultation.
--- NOTE | 2023-08-13 14:34 | DI.RAD.S_ITS ---
PROCEDURE: XR CHEST 2V INDICATIONS: Increased sputum production, fatigue, cough TECHNIQUE: 2 views of the chest were acquired. COMPARISON: [facility], CR, XR CHEST 1V, 06/13/2023, 13:05. [facility], CR, XR CHEST 1V, 06/07/2023, 13:05. FINDINGS: Surgical changes and devices: None. Lungs and pleura: Lungs are clear. No pleural effusions or pneumothorax. Mediastinum: Mediastinal contours are normal. Heart size is normal. Bones and chest wall: No suspicious bony abnormalities. Soft tissues appear unremarkable. IMPRESSION: No acute cardiopulmonary abnormality is seen. Dictated by: Servando Cardozo M.D. on 08/13/2023 at 15:19 Approved by: Servando Cardozo M.D. on 08/13/2023 at 15:19
[2023-08-13 16:14] VITALS: BP 128/67; PULSE 99; RESP 18; O2SAT 98
[2023-08-13 16:39] LABS: Add Manual Diff / Slide Review NO; Basophils Absolute Auto 100 /uL (0-100); Basophils Percent Auto 0.4 % (0-2); Eosinophils Absolute Auto 300 /uL (0-450); Eosinophils Percent Auto 1.7 % (2-4); Hematocrit 43.9 % (41-53); Hemoglobin 14.4 g/dL (13.5-17.5); Lymphocytes Absolute Auto 2000 /uL (1100-4500); Lymphocytes Percent Auto 10.8 % (25-40); Mean Corpuscular HGB Conc 32.8 % (30-36); Mean Corpuscular Hemoglobin 30.5 PG (26-34); Mean Corpuscular Volume 93.2 fL (80-100); Monocytes Absolute Auto 1800 /uL (0-900); Monocytes Percent Auto 9.7 % (3-14); Neutrophils Absolute Auto 14100 /uL (1500-7000); Neutrophils Percent Auto 77.4 % (50-75); Platelet Count 222 X10^3/uL (150-400); Red Blood Cell Count 4.71 X10^6/uL (4.5-5.9); Red Cell Distribution Width 15.1 % (11.6-14.8); White Blood Cell Count 18.3 X10^3/uL (4.5-11.0)
[2023-08-13 16:51] LABS: Alanine Aminotransferase 25 IU/L (<50); Albumin 4.4 g/dL (3.5-5.0); Albumin Globulin Ratio 1.1 (1.0-2.8); Alkaline Phosphatase 97 U/L (38-126); Aspartate Aminotransferase 30 IU/L (17-59); BUN Creatinine Ratio 20.3 (6-22); Bilirubin Total 0.7 mg/dL (0.2-1.3); Blood Urea Nitrogen 16 mg/dL (9-20); Calcium 9.5 mg/dL (8.4-10.2); Carbon Dioxide 31 mmol/L (22-32); Chloride 101 mmol/L (98-107); Estimated Glomerular Filt Rate > 60 mL/min (>60); Globulin 3.9 g/dL (1.7-4.1); Glucose 98 mg/dL (80-110); HEMOLYSIS 18 (0-50); Potassium 4.1 mmol/L (3.4-5.1); Sodium 138 mmol/L (137-145); Total Protein 8.3 g/dL (6.3-8.2)
[2023-08-13 17:01] LABS: Appearance Urine UA CLEAR; Bilirubin Urine UA NEGATIVE (NEGATIVE); Color Urine UA YELLOW; Glucose Urine UA NEGATIVE (Negative); Ketones Urine UA 1+ (NEGATIVE); Leukocyte Esterase Urine UA NEGATIVE (NEGATIVE); Nitrite Urine UA NEGATIVE (Negative); Occult Blood Urine UA NEGATIVE (Negative); Protein Urine UA NEGATIVE (Negative); Urobilinogen Urine UA 0.2 E.U./dL (0.2); pH Urine UA 6.5 (4.5-8.0)
[2023-08-13 17:02] LABS: NT-proBNP (BNP-Adult 18+) 310 pg/mL (<125); Troponin I 0.024 ng/mL (0.01-0.034)
[2023-08-13 17:20] LABS: Bacteria Urine None Seen; Culture Indicated Urine Cult Not Indicated; RBC Urine None Seen (0-5/HPF); Squamous Epithelial Cell Urine None Seen (0-5/HPF); Urine Volume 10mL (spun); WBC Urine None Seen (0-5/HPF)
--- NOTE | 2023-08-13 18:14 | PC.NURSE ---
This RN contacted wound care clinic to ask for patient wound rewrap instructions. Wound care nurse came to short stay unit with instructions. Vaseline gauze placed over stasis ulcer, covered with hydrofera blue. Then wrapped with unna boot. Then wrapped patient with Kerlix and finally wrapped with coban per instructions. This RN reassessed patient CMS remains in tact. Pedal pulse is present. Patient foot color remains unchanged post wrap.
[2023-08-13 18:52] VITALS: BP 132/69; PULSE 100; RESP 18; TEMP 36.7; O2SAT 98
== END 2023-08-13 18:54 | disposition home or self-care (01) ==
PROVIDERS: Emergency Medicine; Emergency Provider Physician Assistant; PCP Family Medicine
DX: B34.9 Viral infection, unspecified (principal); R05.9 Cough, unspecified; Z20.822 Contact with and (suspected) exposure to COVID-19
CPT/HCPCS: 0241U; 36415; 71046; 80053; 81001; 83880; 84484; 85025; 87040; 87070; 87651; 93005; 99284

== ENCOUNTER → 2023-08-18 14:16 | Outpatient (CLI) | payer BC, OTHER, SELFPAY ==
[2023-06-13 16:31] VITALS: BMI 31.4
[2023-08-18 21:02] LABS: Influenza A - CEPHEID Flu A NEGATIVE (NEGATIVE); Influenza B - CEPHEID Flu B NEGATIVE (NEGATIVE); Respiratory Syncytial Virus Negative (Negative)
[2023-08-18 21:22] LABS: COVID-19 CEPHEID 4-PLEX PCR Negative (Negative)
== END ==
LOC: LAB 14:17
PROVIDERS: PCP Family Medicine; Visit Provider Physician Assistant
DX: R05.1 Acute cough (principal)
CPT/HCPCS: 0241U

== ENCOUNTER → 2023-11-02 09:00 | Outpatient (CLI) | payer BC, OTHER, SELFPAY ==
[2023-06-13 16:31] VITALS: BMI 31.4
[2023-11-02 09:59] LABS: Add Manual Diff / Slide Review NO; Basophils Absolute Auto 0 /uL (0-100); Basophils Percent Auto 0.5 % (0-2); Eosinophils Absolute Auto 300 /uL (0-450); Eosinophils Percent Auto 3.1 % (2-4); Hematocrit 42.5 % (41-53); Hemoglobin 14.2 g/dL (13.5-17.5); Lymphocytes Absolute Auto 1800 /uL (1100-4500); Lymphocytes Percent Auto 20.7 % (25-40); Mean Corpuscular HGB Conc 33.4 % (30-36); Mean Corpuscular Hemoglobin 30.7 PG (26-34); Mean Corpuscular Volume 92.1 fL (80-100); Monocytes Absolute Auto 700 /uL (0-900); Monocytes Percent Auto 8.4 % (3-14); Neutrophils Absolute Auto 6000 /uL (1500-7000); Neutrophils Percent Auto 67.3 % (50-75); Platelet Count 284 X10^3/uL (150-400); Red Blood Cell Count 4.61 X10^6/uL (4.5-5.9); Red Cell Distribution Width 15.1 % (11.6-14.8); White Blood Cell Count 8.9 X10^3/uL (4.5-11.0)
[2023-11-02 10:10] LABS: Alanine Aminotransferase 28 IU/L (<50); Albumin 4.1 g/dL (3.5-5.0); Albumin Globulin Ratio 1.2 (1.0-2.8); Alkaline Phosphatase 93 U/L (38-126); Aspartate Aminotransferase 34 IU/L (17-59); BUN Creatinine Ratio 16.5 (6-22); Bilirubin Total 0.6 mg/dL (0.2-1.3); Blood Urea Nitrogen 15 mg/dL (9-20); Calcium 9.1 mg/dL (8.4-10.2); Carbon Dioxide 30 mmol/L (22-32); Chloride 102 mmol/L (98-107); Cholesterol 133 mg/dL (140-199); Estimated Glomerular Filt Rate > 60 mL/min (>60); Globulin 3.3 g/dL (1.7-4.1); Glucose 103 mg/dL (80-110); HDL Cholesterol 39 mg/dL (40-60); HEMOLYSIS < 15 (0-50); LDL Cholesterol Calculated 80 mg/dL (<100); Potassium 5.2 mmol/L (3.4-5.1); Sodium 136 mmol/L (137-145); Total Protein 7.4 g/dL (6.3-8.2); Triglycerides 68 mg/dL (35-150)
[2023-11-02 10:19] LABS: Vitamin D 25 Hydroxy (D3) 42.8 ng/mL (30.0-100.0)
[2023-11-02 10:39] LABS: Prostate Specific Antigen 0.969 ng/mL (0.10-4.00)
== END ==
LOC: LAB 09:01
PROVIDERS: PCP Family Medicine; Referring Provider Family Medicine; Visit Provider Family Medicine
DX: Z12.5 Encounter for screening for malignant neoplasm of prostate (principal); E55.9 Vitamin D deficiency, unspecified; E78.2 Mixed hyperlipidemia; B35.4 Tinea corporis; M54.50 Low back pain, unspecified; G89.29 Other chronic pain
CPT/HCPCS: 36415; 80053; 80061; 82306; 84153; 85025

== ENCOUNTER 2024-04-11 08:49 | Day surgery (SDC) | payer BC, OTHER, MEDICARE, SELFPAY ==
[2023-06-13 16:31] VITALS: BMI 31.4
[2024-04-11 09:16] VITALS: BP 124/76; PULSE 79; RESP 14; TEMP 36.4; O2SAT 93
--- NOTE | 2024-04-11 10:05 | P.HP_ITS ---
History of Present Illness History of Present Illness Date Patient Seen: 04/11/24 Time Patient Seen: 10:05 Chief complaint: SDC Narrative: 68-year-old man here for screening colonoscopy. Last colonoscopy 10 years ago. No abdominal concerns at this time. No family history of colon cancer. [facility] Medical History BMI greater than 30 Obstructive sleep apnea Atrial flutter Chronic throat clearing Shortness of breath Chronic neck pain Sarcoidosis Chronic bilateral low back pain with bilateral sciatica Chronic right hip pain History of fracture of right hip Chronic left-sided low back pain without sciatica Meralgia paresthetica, left lower limb Tinea corporis Trigger finger of right hand Upper extremity somatic dysfunction Degenerative arthritis of knee, bilateral Synovial cyst of popliteal space [De Paz], left knee Swelling of left knee joint Somatic dysfunction of lower extremity Pelvic somatic dysfunction Sacral region somatic dysfunction Segmental and somatic dysfunction of abdomen and other regions Lumbar region somatic dysfunction Left knee pain Low back pain Bilateral hand pain Eosinophilia, unspecified Segmental and somatic dysfunction of rib cage Rib pain on left side Unexplained weight gain Hyperlipidemia, mixed Vitamin D deficiency Allergies Abnormal chest xray (~1978) Gout (~1988) Mumps Herpes (~1977) Hepatitis C Retinal detachment (~2004) Hearing loss (~2009) Cataracts, bilateral Personal history of sarcoidosis (~1978) RINCON (dyspnea on exertion) Surgical History Anesthesia History of surgery History of hip replacement Family History Father History of heart disease Hyperlipidemia Hypertension Mother Cancer Diabetes mellitus Brother Diabetes mellitus History of heart disease Sister Stroke Atrial fibrillation Grandfather Cancer Grandmother History of heart disease Grandmother No problems noted. Social History marital status: household members: spouse lives independently: Yes occupational status: employed Smoking Status: Never smoker alcohol intake: current substance use type: does not use Meds Home Medications and Allergies Home Medications Medication Instructions Recorded Confirmed Type acetaminophen 325 mg capsule 650 mg (2 x 325 mg) PO QID PRN 06/02/23 04/11/24 Rx (Tylenol) pain #60 caps apixaban 5 mg tablet (Eliquis) 5 mg PO BID #3 tabs 06/12/23 04/11/24 Rx spironolactone 25 mg tablet 25 mg PO DAILY 07/30/23 04/11/24 History atorvastatin 10 mg tablet 10 mg PO DAILY 11/05/23 04/11/24 History allopurinol 300 mg tablet 300 mg PO DAILY #90 tabs 02/11/24 04/11/24 Rx Allergies Allergy/AdvReac Type Severity Reaction Status Date / Time penicillin G Allergy Severe Hives Verified 04/11/24 09:12 Sulfa (Sulfonamide Allergy Severe Hives Verified 04/11/24 09:12 Antibiotics) Exam Vital Signs (past 8 hours): - 04/11/24 09:16 Temperature 97.6 F Pulse Rate 79 Respiratory Rate 14 Blood Pressure 124/76 Pulse Oximetry 93 Oxygen Delivery Method Room Air Oxygen Delivery Method Room Air Narrative Exam Narrative: General adult man alert oriented no acute distress Chest nonlabored respiration Extremities warm well perfused Assessment & Plan Assessment & Plan narrative: The patient requires colorectal screening and colonoscopy is recommended. Technical details were discussed. Risks, benefits, alternatives explained. Risks including but not limited to myocardial infarction, aspiration, bleeding, pain, missed lesion, incomplete examination, need for further radiographic studies, intestinal injury, and need for major abdominal surgery were discussed. All questions were answered to their satisfaction, and they are in agreement with this plan. Time-Based Coding :: [TOTAL MINUTES] spent with patient and on the chart (including review of chart, obtaining history, exam, reviewing outside data, placing orders, documenting exam and treatment plan, and counseling patient) on [DATE].
--- NOTE | 2024-04-11 10:14 | P.OP.COLON_ITS ---
Operative Date/Time/Diagnoses Date of procedure: 04/11/24 Time of procedure: 10:48 Pre-op diagnosis: Colorectal screening Procedure & Clinicians Study performed: Screening colonoscopy Same procedure as scheduled: Yes Indications: Screening Surgeon: Wei Seymour Procedure Notes Procedure in detail: The history and physical was performed/updated and the patient is ASA class is 2. The procedure was discussed in detail with the patient. Potential risks complications including infection, bleeding, missed diagnosis, perforation, need for surgery, and were explained. Their questions were answered and informed consent was obtained. Patient was brought to the procedure room and placed standard monitoring equipment. The patient's vital signs were monitored continuously throughout the entire procedure. Prior to starting time-out was performed. The patient was placed in the left lateral recumbent position. Procedural sedation was administered by anesthesia. Examination began with a thorough inspection of the perianal area there was no evidence of fissures, fistulae, external hemorrhoids or cutaneous malignancy. The colonoscopy scope was then placed into the anal canal and was advanced to the cecum, which was identified by the ileocecal valve, the appendiceal orifice and the confluence of the taenia. The scope was then slowly withdrawn examining colon thoroughly in all directions, irrigating it of any residual stool. The scope was retroflexed within the rectum The patient tolerated the procedure well. They will be discharged once criteria are met. The prep was of good/excellent quality. The withdrawl time was 7 minutes. FINDINGS * Tortuous proximal colon required external compression and stiffening of the scope. Specimen(s): none sent Impression: Normal colonoscopy. Post-procedure Plan for aftercare: No need for further colonoscopy unless symptomatic Disposition: same day surgery
[2024-04-11 10:45] VITALS: BP 121/76; RESP 65; TEMP 36.7; O2SAT 93
[2024-04-11 10:50] VITALS: BP 102/75; PULSE 71; RESP 21; O2SAT 95
[2024-04-11 10:55] VITALS: BP 120/66; PULSE 67; RESP 15; TEMP 36.7; O2SAT 95
== END 2024-04-11 11:21 | disposition home or self-care (01) ==
PROVIDERS: PCP Family Medicine; Referring Provider Surgery; Visit Provider Surgery
PROC: 0DJD8ZZ Inspection of Lower Intestinal Tract, Via Natural or Artificial Opening Endoscopic (ICD-10-PCS; CPT 45378; principal; 2024-04-11 10:00)
DX: Z12.11 Encounter for screening for malignant neoplasm of colon (principal)
CPT/HCPCS: 45378; J2704

== ENCOUNTER → 2024-05-03 10:29 | Outpatient (CLI) | payer BC, OTHER, SELFPAY ==
[2023-06-13 16:31] VITALS: BMI 31.4
--- NOTE | 2024-05-03 10:32 | DI.RAD.S_ITS ---
PROCEDURE: XR SHOULDER RT MIN 2V INDICATIONS: acute pain x 3 days anterior, no injury, woke up with it TECHNIQUE: 3 views of the shoulder were acquired. COMPARISON: None. FINDINGS: Bones: No fractures or dislocations. No suspicious bony lesions. Visualized ribs appear intact. Soft tissues: No suspicious soft tissue calcifications. Calcific tendinitis. Moderate to severe acromioclavicular and glenohumeral degenerative narrowing. Periarticular osteophytes are present. No erosions. IMPRESSION: No visualized acute fracture or dislocation. However, if clinical concern and/or pain persist, short interval imaging followup in 7-10 days is recommended, as occult injury cannot be definitively excluded. Acromioclavicular and glenohumeral arthritic change. Dictated by: Larisa Young M.D. on 05/03/2024 at 19:41 Approved by: Larisa Young M.D. on 05/03/2024 at 19:41
[2024-05-03 11:23] LABS: Alanine Aminotransferase 34 IU/L (<50); Albumin 4.3 g/dL (3.5-5.0); Albumin Globulin Ratio 1.5 (1.0-2.8); Alkaline Phosphatase 75 U/L (38-126); Aspartate Aminotransferase 39 IU/L (17-59); BUN Creatinine Ratio 18.9 (6-22); Bilirubin Total 0.6 mg/dL (0.2-1.3); Blood Urea Nitrogen 17 mg/dL (9-20); Calcium 9.5 mg/dL (8.4-10.2); Carbon Dioxide 28 mmol/L (22-32); Chloride 104 mmol/L (98-107); Estimated Glomerular Filt Rate > 60 mL/min (>60); Globulin 2.8 g/dL (1.7-4.1); Glucose 89 mg/dL (80-110); HEMOLYSIS < 15 (0-50); Potassium 4.3 mmol/L (3.4-5.1); Sodium 138 mmol/L (137-145); Total Protein 7.1 g/dL (6.3-8.2); Uric Acid 4.5 mg/dL (3.5-8.5)
== END ==
PROVIDERS: PCP Family Medicine; Referring Provider Physician Assistant; Visit Provider Physician Assistant
DX: S46.911A Strain of unspecified muscle, fascia and tendon at shoulder and upper arm level, right arm, initial encounter (principal); X58.XXXA Exposure to other specified factors, initial encounter
CPT/HCPCS: 36415; 73030; 80053; 84550

== ENCOUNTER → 2024-10-23 08:12 | Outpatient (CLI) | payer BC, OTHER, SELFPAY ==
[2023-06-13 16:31] VITALS: BMI 31.4
[2024-10-23 09:43] LABS: Free T3, Triiodothyronine Free 5.71 pg/mL (2.77-5.27); Free T4, Direct Thyroxine 1.41 ng/dL (0.78-2.19)
[2024-10-23 09:56] LABS: Thyroid Stimulating Hormone 3.61 uIU/mL (0.47-4.68)
[2024-10-25 13:36] LABS: Anti Thyroglobulin Antibody <1.0 IU/mL (0.0-0.9); Thyroid Peroxidase Antibodies 11 IU/mL (0-34)
== END ==
PROVIDERS: PCP Family Medicine; Referring Provider Family Medicine; Visit Provider Family Medicine
DX: E03.9 Hypothyroidism, unspecified (principal)
CPT/HCPCS: 36415; 84439; 84443; 84481; 86376; 86800

== ENCOUNTER → 2024-12-07 09:09 | Outpatient (CLI) | payer BC, OTHER, SELFPAY ==
[2023-06-13 16:31] VITALS: BMI 31.4
[2024-12-07 10:36] LABS: Free T3, Triiodothyronine Free 5.94 pg/mL (2.77-5.27); Free T4, Direct Thyroxine 1.47 ng/dL (0.78-2.19)
[2024-12-07 10:49] LABS: Thyroid Stimulating Hormone 1.78 uIU/mL (0.47-4.68)
== END ==
PROVIDERS: PCP Family Medicine; Referring Provider Family Medicine; Visit Provider Family Medicine
DX: E03.9 Hypothyroidism, unspecified (principal); E03.2 Hypothyroidism due to medicaments and other exogenous substances
CPT/HCPCS: 36415; 84439; 84443; 84481

== ENCOUNTER → 2025-01-24 08:44 | Outpatient (CLI) | payer BC, OTHER, SELFPAY ==
[2023-06-13 16:31] VITALS: BMI 31.4
[2025-01-24 10:11] LABS: Add Manual Diff / Slide Review NO; Hematocrit 45.1 % (41-53); Hemoglobin 15.0 g/dL (13.5-17.5); Lymphocytes Absolute Auto 1900 /uL (1100-4500); Mean Corpuscular HGB Conc 33.2 % (30-36); Mean Corpuscular Hemoglobin 31.3 PG (26-34); Mean Corpuscular Volume 94.1 fL (80-100); Platelet Count 200 X10^3/uL (150-400)
[2025-01-24 10:29] LABS: Alanine Aminotransferase 24 IU/L (<50); Albumin 4.2 g/dL (3.5-5.0); Albumin Globulin Ratio 1.6 (1.0-2.8); Alkaline Phosphatase 78 U/L (38-126); Blood Urea Nitrogen 18 mg/dL (9-20); Calcium 9.4 mg/dL (8.4-10.2); Carbon Dioxide 28 mmol/L (22-32); Chloride 101 mmol/L (98-107); Cholesterol 176 mg/dL (140-199); Estimated Glomerular Filt Rate > 60 mL/min (>60); Globulin 2.7 g/dL (1.7-4.1); Glucose 91 mg/dL (70-99); HDL Cholesterol 44 mg/dL (40-60); HEMOLYSIS < 15 (0-50); Potassium 4.8 mmol/L (3.4-5.1); Sodium 136 mmol/L (137-145); Total Protein 6.9 g/dL (6.3-8.2); Triglycerides 71 mg/dL (35-150); Uric Acid 4.8 mg/dL (3.5-8.5)
[2025-01-24 10:40] LABS: Free T3, Triiodothyronine Free 5.36 pg/mL (2.77-5.27); Free T4, Direct Thyroxine 1.35 ng/dL (0.78-2.19)
[2025-01-24 10:54] LABS: Thyroid Stimulating Hormone 1.64 uIU/mL (0.47-4.68)
[2025-01-25 08:09] LABS: CRP, High Sensitivity 1.32 mg/L (0.00-3.00)
== END ==
PROVIDERS: PCP Family Medicine; Referring Provider Family Medicine; Visit Provider Family Medicine
DX: M35.00 Sjogren syndrome, unspecified (principal); E03.2 Hypothyroidism due to medicaments and other exogenous substances; E78.2 Mixed hyperlipidemia
CPT/HCPCS: 36415; 80053; 80061; 84439; 84443; 84481; 84550; 85025; 85651; 86038; 86140; 86235; 86430

== ENCOUNTER → 2025-03-08 16:57 | Outpatient (CLI) | payer BC, OTHER, SELFPAY ==
[2023-06-13 16:31] VITALS: BMI 31.4
[2025-03-08 19:08] LABS: Free T3, Triiodothyronine Free 3.80 pg/mL (2.77-5.27); Free T4, Direct Thyroxine 1.18 ng/dL (0.78-2.19)
[2025-03-08 19:22] LABS: Thyroid Stimulating Hormone 1.31 uIU/mL (0.47-4.68)
== END ==
PROVIDERS: PCP Family Medicine; Referring Provider Family Medicine; Visit Provider Family Medicine
DX: L56.8 Other specified acute skin changes due to ultraviolet radiation (principal); H04.129 Dry eye syndrome of unspecified lacrimal gland; E03.2 Hypothyroidism due to medicaments and other exogenous substances
CPT/HCPCS: 36415; 84439; 84443; 84481

== ENCOUNTER → 2025-03-10 10:10 | Outpatient (CLI) | payer BC, OTHER, SELFPAY ==
[2023-06-13 16:31] VITALS: BMI 31.4
[2025-03-10 11:47] LABS: Free T3, Triiodothyronine Free 4.07 pg/mL (2.77-5.27)
== END ==
PROVIDERS: PCP Family Medicine; Referring Provider Family Medicine; Visit Provider Family Medicine
DX: E03.2 Hypothyroidism due to medicaments and other exogenous substances (principal)
CPT/HCPCS: 36415; 84481